=== PATIENT | male | born 1985 | race Caucasian/White ===

== ENCOUNTER 2022-05-18 13:18 | Inpatient (IN) | payer OTHER ==
[2022-05-18 14:31] LABS: #Eosinphils 0.1 thou/uL (0.0-0.7); #Lymphocytes 2.1 thou/uL (1.20-3.40); #Monocytes 0.5 thou/uL (0.11-0.59); #Neutrophils 7.2 thou/uL (1.40-6.50); %Basophils 0.2 % (0.0-1.0); %Eosinophils 0.7 % (0.0-10.0); %Lymphocytes 21.6 % (21.0-51.0); %Neutrophils 72.5 % (42.0-75.0); Hemoglobin 6.3 g/dL (14.0-18.0); Mean Corpuscular HGB CONC 32.2 g/dL (32.0-36.0); Mean Corpuscular Hemoglobin 42.8 pg (27.0-31.0); Mean Platelet Volume 9.4 fL (7.4-10.4); Platelet Count 153 thou/uL (130-400); RBC Distribution Width 18.2 % (11.5-14.5); Red Blood Cell (RBC) Count 1.46 mill/uL (4.70-6.10); White Blood Cell (WBC) Count 9.9 thou/uL (4.8-10.8)
[2022-05-18 14:37] LABS: INR-International Normal Ratio 1.3; Prothrombin Time 16.8 sec (12.0-14.7)
[2022-05-18 14:38] LABS: PTT 37.5 sec (22.9-36.1)
[2022-05-18 14:43] LABS: ALT (SGPT) 90 U/L (8-55); AST (SGOT) 245 U/L (5-34); Acetaminophen Less than 10.0 mcg/mL (10.0-30.0); Albumin 2.9 g/dL (3.5-5.0); Alcohol Less than 10 mg/dL (Less than 10); Alkaline Phosphatase 227 U/L (40-110); Anion Gap 18 mmol/L (10-20); BUN (Urea Nitrogen) 31 mg/dL (8.9-20.6); Bilirubin, Total 17.4 mg/dL (0.2-1.2); Calc. Creatinine Clearance 0 mL/min (70-130); Calcium 8.1 mg/dL (7.8-10.44); Carbon Dioxide 27 mmol/L (22-29); Chloride 78 mmol/L (98-107); Estimated GFR 63; Globulin 2.7 g/dL (2.4-3.5); Glucose 126 mg/dL (70-105); Lipase 139 U/L (8-78); Potassium 4.1 mmol/L (3.5-5.1); Protein, Total 5.6 g/dL (6.0-8.3); Salicylate Less than 8.0 mg/dL (15.0-30.0)
[2022-05-18 14:56] LABS: Anisocytosis SLIGHT = 6-15 cells (100X) (0-5/hpf); Basophilic Stippling SLIGHT = 1-2 cells (100X) (None Seen); MDiff Complete? YES; Macrocytosis MODERATE=16-30 cells (100X) (0-5/hpf); Platelet Morphology Comment Appears Adequate; Poikilocytosis SLIGHT = 6-15 cells (100X) (0-5/hpf); Polychromasia MODERATE = 3-4 cells (100X) (0-2/hpf); Schistocytes SLIGHT = 2-5 cells (100X) (0-1/hpf); Target Cells SLIGHT = 2-5 cells (100X) (0-1/hpf); Tear Drops SLIGHT = 2-5 cells (100X) (0-1/hpf)
[2022-05-18 15:04] LABS: Sodium 119 mmol/L (136-145)
[2022-05-18] MEDS ORDERED: Pantoprazole 40 MG VIAL ONE ×2 (15:23→17:59)
[2022-05-18] MEDS ORDERED: Activated Charcoal/Sorbitol 25 GM/120 ML TUBE ONE (15:38)
[2022-05-18] MEDS ORDERED: Lorazepam 2 MG/ML VIAL ONE (15:38)
[2022-05-18] MEDS ORDERED: Ondansetron ODT 4 MG TAB PO PRN (16:26)
[2022-05-18] MEDS ORDERED: Senokot S 8.6-50 MG TAB PO PRN (16:26)
[2022-05-18] MEDS ORDERED: Ondansetron PF 4 MG/2 ML Vial IVP PRN (16:26)
[2022-05-18] MEDS ORDERED: Pantoprazole 80 MG, Admixture Fee 1 EACH in Sodium Chloride 0.9% 100 ML IVPB SCH (16:45)
[2022-05-18] MEDS ORDERED: Folic Acid 1 MG TAB PO SCH (17:00)
[2022-05-18 17:40] LABS: SARS-CoV-2 NAA Rapid Test Not Detected (NotDetected)
[2022-05-18] MEDS ORDERED: Pantoprazole 40 MG VIAL IVP SCH ×3 (17:45→18:00)
[2022-05-18] MEDS ORDERED: cefTRIAXone\\ROCEPHIN 1 GM VIAL ONE (17:58)
[2022-05-18] MEDS ORDERED: methylPREDNISolone Sod Succ 40 MG VIAL ONE (17:59)
[2022-05-18] MEDS ORDERED: Octreotide Acetate 50 MCG/ML AMP SLOW IVP SCH (18:00)
[2022-05-18] MEDS ORDERED: Lorazepam 2 MG/ML VIAL SLOW IVP PRN (18:01)
[2022-05-18] MEDS ORDERED: Lorazepam 2 MG/ML VIAL IM PRN (18:03)
[2022-05-18] MEDS ORDERED: Lorazepam 1 MG TAB PO PRN (18:03)
[2022-05-18] MEDS ORDERED: Multivit, Therapeutic 1 TAB PO SCH (18:15)
[2022-05-18] MEDS: Sodium Chloride 0.9% 1,000 ML IV SCH (18:20)
[2022-05-18] MEDS: cefTRIAXone\\ROCEPHIN 1 GM in Sodium Chloride 0.9% 100 ML IVPB SCH (18:20)
[2022-05-18] MEDS: methylPREDNISolone Sod Succ/PF 125 MG/2 ML VIAL IVP SCH (18:21)
[2022-05-18 19:24] LABS: INR-International Normal Ratio 1.3; PTT 37.4 sec (22.9-36.1); Prothrombin Time 16.4 sec (12.0-14.7)
[2022-05-18 19:47] LABS: Bilirubin 2+ (Negative); Blood, Urine Negative (Negative); Clarity Turbid (Clear); Glucose, Urine (Dipstick) Normal (Negative); Ketone, Urine Negative (Negative); Leukocyte Negative Leu/uL (Negative); Nitrite Negative (Negative); Protein, Urine (Dipstick) 10 mg/dL (Neg-Trace); Specific Gravity, Urine 1.017 (1.002-1.036)
[2022-05-18 19:58] LABS: Amphetamine Not Detected (NotDetected); Barbiturates Screen Not Detected (NotDetected); Benzodiazepine Screen Not Detected (NotDetected); Cocaine Metabolite Screen Not Detected (NotDetected); Methadone Not Detected (NotDetected); Methamphetamine Not Detected (NotDetected); Opiate Screen Not Detected (NotDetected); Oxycodone Screen Not Detected (NotDetected); Phencyclidine (PCP) Not Detected (NotDetected); THC/Cannabinoid Screen Not Detected (NotDetected); Tricyclic Screen Not Detected (NotDetected)
[2022-05-18] MEDS: Lorazepam 1 MG TAB PO SCH (21:00)
[2022-05-18] MEDS: Octreotide Acetate 1,250 MCG in Sodium Chloride 0.9% 250 ML 250 ML IVPB SCH (21:57)
[2022-05-18 22:49] LABS: Anion Gap 17 mmol/L (10-20); BUN (Urea Nitrogen) 34 mg/dL (8.9-20.6); Calc. Creatinine Clearance 76 mL/min (70-130); Carbon Dioxide 27 mmol/L (22-29); Chloride 80 mmol/L (98-107); Estimated GFR 65; Glucose 124 mg/dL (70-105); Potassium 4.5 mmol/L (3.5-5.1)
[2022-05-18 22:54] LABS: Sodium 119 mmol/L (136-145)
[2022-05-19] MEDS: Lorazepam 1 MG TAB PO SCH ×4 (00:08→18:11)
[2022-05-19] MEDS: Sodium Chloride 0.9% 1,000 ML IV SCH (02:13)
[2022-05-19 02:49] LABS: INR-International Normal Ratio 1.3; Prothrombin Time 16.3 sec (12.0-14.7)
[2022-05-19 02:50] LABS: PTT 38.1 sec (22.9-36.1)
[2022-05-19 03:12] LABS: Magnesium 2.2 mg/dL (1.6-2.6)
[2022-05-19 03:13] LABS: CK (CPK) 18 U/L (30-200); Lipase 116 U/L (8-78); Phosphorus 2.6 mg/dL (2.3-4.7)
[2022-05-19 03:14] LABS: ALT (SGPT) 86 U/L (8-55); AST (SGOT) 211 U/L (5-34); Albumin 2.8 g/dL (3.5-5.0); Alkaline Phosphatase 222 U/L (40-110); Anion Gap 20 mmol/L (10-20); BUN (Urea Nitrogen) 34 mg/dL (8.9-20.6); Calc. Creatinine Clearance 71 mL/min (70-130); Calcium 8.1 mg/dL (7.8-10.44); Carbon Dioxide 24 mmol/L (22-29); Chloride 79 mmol/L (98-107); Estimated GFR 60; Globulin 3.1 g/dL (2.4-3.5); Glucose 166 mg/dL (70-105); Potassium 4.7 mmol/L (3.5-5.1); Protein, Total 5.9 g/dL (6.0-8.3)
[2022-05-19 03:16] LABS: Sodium 118 mmol/L (136-145)
[2022-05-19 03:29] LABS: Anisocytosis MODERATE=16-30 cells (100X) (0-5/hpf); Band 5 % (5-11); Hemoglobin 8.1 g/dL (14.0-18.0); Lymphocytes 6 % (21-51); MDiff Complete? YES; Macrocytosis MODERATE=16-30 cells (100X) (0-5/hpf); Mean Corpuscular HGB CONC 33.6 g/dL (32.0-36.0); Mean Corpuscular Hemoglobin 39.5 pg (27.0-31.0); Mean Platelet Volume 9.4 fL (7.4-10.4); Monocytes 3 % (0-10); Neutrophil 86 % (42-75); Nucleated RBC 2 % (0); Platelet Count 132 thou/uL (130-400); Polychromasia MODERATE = 3-4 cells (100X) (0-2/hpf); RBC Distribution Width 24.1 % (11.5-14.5); Red Blood Cell (RBC) Count 2.05 mill/uL (4.70-6.10); Target Cells SLIGHT = 2-5 cells (100X) (0-1/hpf); White Blood Cell (WBC) Count 6.7 thou/uL (4.8-10.8)
[2022-05-19 03:38] LABS: Vitamin B12 440 pg/mL (211-911)
[2022-05-19 03:44] LABS: HBCM Index 0.09 S/CO (0-0.79); HBSAg Index 0.38 S/CO (0-0.99); Hep A IgM AB Non-Reactive (NonReactive); Hep A IgM S/CO 0.22 S/CO (0-0.79); Hep B Surf Ag Non-Reactive S/CO (NonReactive); Hep C IgG Ab Non-Reactive (NonReactive); Hep C Index 0.14 S/CO (0-0.79); Hepatitis B Core IgM Abs Non-Reactive (NonReactive)
[2022-05-19] MEDS: Albumin 25% 25 GM/100 ML BOT IVPB SCH ×4 (04:55→22:02)
[2022-05-19] MEDS: Pantoprazole 80 MG in Sodium Chloride 0.9% 100 ML IVPB SCH ×2 (05:03→15:14)
[2022-05-19 07:39] LABS: Anion Gap 19 mmol/L (10-20); BUN (Urea Nitrogen) 38 mg/dL (8.9-20.6); Calc. Creatinine Clearance 70 mL/min (70-130); Calcium 7.9 mg/dL (7.8-10.44); Carbon Dioxide 24 mmol/L (22-29); Chloride 81 mmol/L (98-107); Estimated GFR 59; Glucose 177 mg/dL (70-105); Potassium 4.5 mmol/L (3.5-5.1)
[2022-05-19 07:43] LABS: Sodium 119 mmol/L (136-145)
[2022-05-19] MEDS: Thiamine 100 MG TAB PO SCH (09:06)
[2022-05-19] MEDS: Multivit, Therapeutic 1 TAB PO SCH (09:06)
[2022-05-19] MEDS: prednisoLONE 15 MG/5 ML UDCUP PO SCH (09:07)
[2022-05-19] MEDS: Folic Acid 1 MG TAB PO SCH (09:07)
[2022-05-19] MEDS: Midodrine HCl 5 MG TAB PO SCH ×3 (09:07→20:38)
[2022-05-19 11:13] LABS: Syphilis Antibody Nonreactive (Nonreactive); Syphilis Antibody Index 0.07 S/CO (<1.00 Non-Reactive)
[2022-05-19 12:00] LABS: Anion Gap 16 mmol/L (10-20); BUN (Urea Nitrogen) 42 mg/dL (8.9-20.6); Calc. Creatinine Clearance 66 mL/min (70-130); Calcium 8.1 mg/dL (7.8-10.44); Carbon Dioxide 26 mmol/L (22-29); Chloride 81 mmol/L (98-107); Estimated GFR 55; Glucose 190 mg/dL (70-105); Potassium 4.3 mmol/L (3.5-5.1)
[2022-05-19 12:16] LABS: Sodium 119 mmol/L (136-145)
[2022-05-19 16:51] LABS: Anion Gap 17 mmol/L (10-20); BUN (Urea Nitrogen) 45 mg/dL (8.9-20.6); Calc. Creatinine Clearance 70 mL/min (70-130); Calcium 8.3 mg/dL (7.8-10.44); Carbon Dioxide 25 mmol/L (22-29); Chloride 82 mmol/L (98-107); Estimated GFR 59; Glucose 209 mg/dL (70-105); Sodium 120 mmol/L (136-145)
[2022-05-19] MEDS ORDERED: Lorazepam 1 MG TAB PO PRN (18:03)
[2022-05-19] MEDS: methylPREDNISolone Sod Succ/PF 125 MG/2 ML VIAL IVP SCH (18:11)
[2022-05-19] MEDS: cefTRIAXone\\ROCEPHIN 1 GM in Sodium Chloride 0.9% 100 ML IVPB SCH (19:09)
[2022-05-19] MEDS: Octreotide Acetate 1,250 MCG in Sodium Chloride 0.9% 250 ML 250 ML IVPB SCH (22:07)
[2022-05-20] MEDS: Lorazepam 1 MG TAB PO SCH ×3 (01:00→12:28)
[2022-05-20] MEDS: Pantoprazole 80 MG in Sodium Chloride 0.9% 100 ML IVPB SCH ×3 (01:21→19:59)
[2022-05-20 02:14] LABS: Hep B Surface AG-Rflx Sendout Negative (Negative); Hepatitis B Core Total Negative (Negative); Hepatitis B Surface AB-Sendout Non Reactive (.)
[2022-05-20] MEDS: Albumin 25% 25 GM/100 ML BOT IVPB SCH (04:15)
[2022-05-20 04:50] LABS: INR-International Normal Ratio 1.3; PTT 30.4 sec (22.9-36.1); Prothrombin Time 16.5 sec (12.0-14.7)
[2022-05-20 05:08] LABS: ALT (SGPT) 70 U/L (8-55); AST (SGOT) 163 U/L (5-34); Albumin 3.7 g/dL (3.5-5.0); Alkaline Phosphatase 169 U/L (40-110); Anion Gap 17 mmol/L (10-20); BUN (Urea Nitrogen) 45 mg/dL (8.9-20.6); Bilirubin, Total 20.9 mg/dL (0.2-1.2); Calc. Creatinine Clearance 69 mL/min (70-130); Calcium 8.4 mg/dL (7.8-10.44); Carbon Dioxide 26 mmol/L (22-29); Chloride 84 mmol/L (98-107); Estimated GFR 58; Globulin 2.6 g/dL (2.4-3.5); Glucose 199 mg/dL (70-105); Potassium 4.3 mmol/L (3.5-5.1); Protein, Total 6.3 g/dL (6.0-8.3); Sodium 123 mmol/L (136-145)
[2022-05-20 05:11] LABS: Anisocytosis MODERATE=16-30 cells (100X) (0-5/hpf); Band 5 % (5-11); Hemoglobin 7.9 g/dL (14.0-18.0); Lymphocytes 6 % (21-51); MDiff Complete? YES; Macrocytosis MODERATE=16-30 cells (100X) (0-5/hpf); Mean Corpuscular HGB CONC 35.7 g/dL (32.0-36.0); Mean Corpuscular Hemoglobin 42.5 pg (27.0-31.0); Mean Platelet Volume 9.7 fL (7.4-10.4); Monocytes 5 % (0-10); Neutrophil 84 % (42-75); Nucleated RBC 4 % (0); Ovalocytes MODERATE= 6-15 cells (100X) (0-1/hpf); Platelet Count 125 thou/uL (130-400); Platelet Morphology Comment Appears Decreased; RBC Distribution Width 23.1 % (11.5-14.5); Red Blood Cell (RBC) Count 1.85 mill/uL (4.70-6.10); Target Cells MODERATE= 6-15 cells (100X) (0-1/hpf); Tear Drops SLIGHT = 2-5 cells (100X) (0-1/hpf); White Blood Cell (WBC) Count 6.2 thou/uL (4.8-10.8)
[2022-05-20] MEDS ORDERED: Famotidine/PF 20 mg/2ml Vial ONE (07:55)
[2022-05-20] MEDS ORDERED: Ondansetron HCl/PF 4 MG/2 ML Vial IVP PRN (08:01)
[2022-05-20] MEDS ORDERED: Promethazine HCl 25 MG/ML VIAL IVPB PRN (08:01)
[2022-05-20] MEDS ORDERED: Promethazine HCl 25 MG/ML VIAL IM PRN (08:01)
[2022-05-20] MEDS ORDERED: Lidocaine 1% MPF 2 ML VIAL ONE (08:13)
[2022-05-20] MEDS ORDERED: PROPOFOL 200 MG/20 ML VIAL ONE (08:13)
[2022-05-20] MEDS ORDERED: Furosemide 40 MG/4 ML VIAL SLOW IVP SCH (09:45)
[2022-05-20] MEDS: Folic Acid 1 MG TAB PO SCH (10:38)
[2022-05-20] MEDS: Multivit, Therapeutic 1 TAB PO SCH (10:38)
[2022-05-20] MEDS: Midodrine HCl 5 MG TAB PO SCH ×3 (10:38→20:52)
[2022-05-20] MEDS: Thiamine 100 MG TAB PO SCH (10:38)
[2022-05-20] MEDS: Voriconazole 50 MG TAB PO SCH ×2 (10:39→20:52)
[2022-05-20] MEDS ORDERED: Insulin Regular 300 UNITS/3 ML VIAL SC PRN (10:41)
[2022-05-20] MEDS: prednisoLONE 15 MG/5 ML UDCUP PO SCH (11:15)
[2022-05-20] MEDS ORDERED: predniSONE 20 MG TAB PO SCH (11:30)
[2022-05-20] MEDS: Cefepime 1 GM in Sodium Chloride 0.9% 100 ML IVPB SCH (12:28)
[2022-05-20] MEDS: metroNIDAZOLE 500 MG in Premix Bag 1 BAG IVPB SCH ×2 (12:29→20:02)
[2022-05-20] MEDS: Vancomycin 1.5 GRAM/300 ML BAG 1.5 GM in Premix Bag 1 BAG IVPB SCH (13:53)
[2022-05-20] MEDS ORDERED: Octreotide Acetate 100 MCG/ML VIAL SC SCH (14:00)
[2022-05-20] MEDS: Nicotine 21 MG PATCH TD SCH (17:11)
[2022-05-20] MEDS ORDERED: Lorazepam 1 MG TAB PO PRN (18:03)
[2022-05-20] MEDS: guaiFENesin/DM ER PO SCH (20:52)
[2022-05-20] MEDS: Furosemide 40 MG/4 ML VIAL SLOW IVP SCH (20:52)
[2022-05-20] MEDS: Octreotide Acetate 500 MCG/ML VIAL SC SCH (22:26)
[2022-05-21] MEDS: Cefepime 1 GM in Sodium Chloride 0.9% 100 ML IVPB SCH ×2 (00:16→12:48)
[2022-05-21] MEDS ORDERED: Morphine 2 MG/ML VIAL SLOW IVP SCH (00:45)
[2022-05-21] MEDS: metroNIDAZOLE 500 MG in Premix Bag 1 BAG IVPB SCH ×3 (03:02→21:29)
[2022-05-21 03:49] LABS: Hemoglobin 7.2 g/dL (14.0-18.0); Mean Corpuscular HGB CONC 33.6 g/dL (32.0-36.0); Mean Corpuscular Hemoglobin 40.1 pg (27.0-31.0); Mean Platelet Volume 9.3 fL (7.4-10.4); Platelet Count 111 thou/uL (130-400); RBC Distribution Width 22.7 % (11.5-14.5); Red Blood Cell (RBC) Count 1.79 mill/uL (4.70-6.10); White Blood Cell (WBC) Count 6.4 thou/uL (4.8-10.8)
[2022-05-21 04:14] LABS: ALT (SGPT) 75 U/L (8-55); AST (SGOT) 142 U/L (5-34); Albumin 3.6 g/dL (3.5-5.0); Alkaline Phosphatase 144 U/L (40-110); Anion Gap 19 mmol/L (10-20); BUN (Urea Nitrogen) 48 mg/dL (8.9-20.6); Bilirubin, Total 21.3 mg/dL (0.2-1.2); Calc. Creatinine Clearance 85 mL/min (70-130); Calcium 8.5 mg/dL (7.8-10.44); Carbon Dioxide 24 mmol/L (22-29); Chloride 88 mmol/L (98-107); Estimated GFR 73; Globulin 2.3 g/dL (2.4-3.5); Glucose 201 mg/dL (70-105); Potassium 3.2 mmol/L (3.5-5.1); Protein, Total 5.9 g/dL (6.0-8.3); Sodium 128 mmol/L (136-145)
[2022-05-21] MEDS: Pantoprazole 80 MG in Sodium Chloride 0.9% 100 ML IVPB SCH (06:05)
[2022-05-21] MEDS: Octreotide Acetate 500 MCG/ML VIAL SC SCH (06:06)
[2022-05-21] MEDS ORDERED: Electrolyte Replacement Protocol 1 EACH FS SCH (07:45)
[2022-05-21] MEDS ORDERED: Electrolyte Replacement Protocol FS PRN (08:00)
[2022-05-21] MEDS ORDERED: Potassium Chloride 20 MEQ TAB PO SCH (08:00)
[2022-05-21] MEDS: predniSONE 20 MG TAB PO SCH (08:23)
[2022-05-21] MEDS: Folic Acid 1 MG TAB PO SCH (08:23)
[2022-05-21] MEDS: Spironolactone 25 MG TAB PO SCH (08:23)
[2022-05-21] MEDS: Midodrine HCl 5 MG TAB PO SCH ×2 (08:23→16:37)
[2022-05-21] MEDS: Voriconazole 50 MG TAB PO SCH ×2 (08:23→21:29)
[2022-05-21] MEDS: Pantoprazole 40 MG VIAL IVP SCH ×2 (08:24→21:30)
[2022-05-21] MEDS: Thiamine 100 MG TAB PO SCH (08:24)
[2022-05-21] MEDS: Multivit, Therapeutic 1 TAB PO SCH (08:24)
[2022-05-21] MEDS: guaiFENesin/DM ER PO SCH ×2 (08:24→21:29)
[2022-05-21] MEDS: Furosemide 40 MG/4 ML VIAL SLOW IVP SCH ×2 (08:24→21:30)
[2022-05-21] MEDS: Vancomycin 1.5 GRAM/300 ML BAG 1.5 GM in Premix Bag 1 BAG IVPB SCH (14:45)
[2022-05-21] MEDS: Nicotine 21 MG PATCH TD SCH (16:37)
[2022-05-21 18:57] LABS: Potassium 3.8 mmol/L (3.5-5.1)
[2022-05-21] MEDS ORDERED: Midodrine HCl 5 MG TAB PO SCH (21:00)
[2022-05-21] MEDS: Benzonatate 100 MG CAP PO PRN (21:29)
[2022-05-21] MEDS: Lorazepam 0.5 MG TAB PO PRN (21:29)
[2022-05-22] MEDS: Cefepime 1 GM in Sodium Chloride 0.9% 100 ML IVPB SCH ×2 (02:46→10:52)
[2022-05-22] MEDS: metroNIDAZOLE 500 MG in Premix Bag 1 BAG IVPB SCH ×3 (04:02→20:52)
[2022-05-22 04:10] LABS: Anion Gap 19 mmol/L (10-20); BUN (Urea Nitrogen) 45 mg/dL (8.9-20.6); Calc. Creatinine Clearance 84 mL/min (70-130); Calcium 8.9 mg/dL (7.8-10.44); Carbon Dioxide 26 mmol/L (22-29); Chloride 90 mmol/L (98-107); Estimated GFR 75; Glucose 181 mg/dL (70-105); Phosphorus 2.3 mg/dL (2.3-4.7); Potassium 3.5 mmol/L (3.5-5.1); Sodium 131 mmol/L (136-145)
[2022-05-22 04:41] LABS: Anisocytosis MODERATE=16-30 cells (100X) (0-5/hpf); Differential Comment Immature Cell(s); Hemoglobin 7.2 g/dL (14.0-18.0); Large Platelets SLIGHT; Lymphocytes 13 % (21-51); MDiff Complete? YES; Macrocytosis MODERATE=16-30 cells (100X) (0-5/hpf); Mean Corpuscular HGB CONC 32.5 g/dL (32.0-36.0); Mean Corpuscular Hemoglobin 38.9 pg (27.0-31.0); Mean Platelet Volume 9.3 fL (7.4-10.4); Monocytes 14 % (0-10); Neutrophil 71 % (42-75); Ovalocytes MODERATE= 6-15 cells (100X) (0-1/hpf); Platelet Count 121 thou/uL (130-400); Platelet Morphology Comment Appears Decreased; RBC Distribution Width 22.5 % (11.5-14.5); Reactive Lymphocytes 1 % (0-10); Red Blood Cell (RBC) Count 1.86 mill/uL (4.70-6.10); Reflex for Review?? NO; Target Cells SLIGHT = 2-5 cells (100X) (0-1/hpf); White Blood Cell (WBC) Count 7.1 thou/uL (4.8-10.8)
[2022-05-22] MEDS ORDERED: Magnesium 2 GM/50 ML(in water) 2 GM in Premix Bag 1 BAG IVPB SCH (08:00)
[2022-05-22] MEDS ORDERED: Potassium Chloride 20 MEQ TAB PO SCH (08:00)
[2022-05-22] MEDS: guaiFENesin/DM ER PO SCH (09:26)
[2022-05-22] MEDS: Multivit, Therapeutic 1 TAB PO SCH (09:26)
[2022-05-22] MEDS: Benzonatate 100 MG CAP PO PRN ×3 (09:26→20:53)
[2022-05-22] MEDS: predniSONE 20 MG TAB PO SCH (09:27)
[2022-05-22] MEDS: Folic Acid 1 MG TAB PO SCH (09:27)
[2022-05-22] MEDS: Thiamine 100 MG TAB PO SCH (09:27)
[2022-05-22] MEDS: Spironolactone 25 MG TAB PO SCH (09:27)
[2022-05-22] MEDS: Pantoprazole 40 MG VIAL IVP SCH ×2 (09:30→20:52)
[2022-05-22] MEDS: Furosemide 40 MG/4 ML VIAL SLOW IVP SCH ×2 (09:30→20:52)
[2022-05-22] MEDS: Voriconazole 50 MG TAB PO SCH ×2 (10:49→20:52)
[2022-05-22 12:28] LABS: Vancomycin, Trough 15.4 ug/mL
[2022-05-22] MEDS ORDERED: guaiFENesin/Codeine 200 mg/20 mg 10 ml Cup PO PRN (13:17)
[2022-05-22] MEDS: Vancomycin 1.5 GRAM/300 ML BAG 1.5 GM in Premix Bag 1 BAG IVPB SCH (14:41)
[2022-05-22] MEDS: Nicotine 21 MG PATCH TD SCH (18:34)
[2022-05-22] MEDS: Lorazepam 0.5 MG TAB PO PRN (20:53)
[2022-05-23] MEDS: Cefepime 1 GM in Sodium Chloride 0.9% 100 ML IVPB SCH ×2 (01:45→11:30)
[2022-05-23] MEDS: Lorazepam 0.5 MG TAB PO PRN (02:32)
[2022-05-23 04:15] LABS: ALT (SGPT) 91 U/L (8-55); AST (SGOT) 120 U/L (5-34); Albumin 3.4 g/dL (3.5-5.0); Alkaline Phosphatase 138 U/L (40-110); Anion Gap 14 mmol/L (10-20); BUN (Urea Nitrogen) 41 mg/dL (8.9-20.6); Bilirubin, Total 17.9 mg/dL (0.2-1.2); Calc. Creatinine Clearance 91 mL/min (70-130); Calcium 8.4 mg/dL (7.8-10.44); Carbon Dioxide 30 mmol/L (22-29); Chloride 88 mmol/L (98-107); Estimated GFR 81; Globulin 2.3 g/dL (2.4-3.5); Glucose 150 mg/dL (70-105); Potassium 3.9 mmol/L (3.5-5.1); Protein, Total 5.7 g/dL (6.0-8.3); Sodium 128 mmol/L (136-145)
[2022-05-23] MEDS: metroNIDAZOLE 500 MG in Premix Bag 1 BAG IVPB SCH ×3 (04:16→20:19)
[2022-05-23] MEDS ORDERED: methylPREDNISolone Sod Succ/PF 125 MG/2 ML VIAL IVP SCH (09:00)
[2022-05-23] MEDS ORDERED: prednisoLONE 10 MG ODT TAB PO SCH (09:00)
[2022-05-23] MEDS: Furosemide 40 MG/4 ML VIAL SLOW IVP SCH ×2 (10:42→20:20)
[2022-05-23] MEDS: Spironolactone 25 MG TAB PO SCH (10:42)
[2022-05-23] MEDS: Folic Acid 1 MG TAB PO SCH (10:42)
[2022-05-23] MEDS: Multivit, Therapeutic 1 TAB PO SCH (10:43)
[2022-05-23] MEDS: Voriconazole 50 MG TAB PO SCH ×2 (10:44→20:19)
[2022-05-23] MEDS: Pantoprazole 40 MG VIAL IVP SCH ×2 (10:44→20:19)
[2022-05-23] MEDS: Thiamine 100 MG TAB PO SCH (10:44)
[2022-05-23] MEDS: methylPREDNISolone Sod Succ/PF 125 MG/2 ML VIAL IVP SCH (11:30)
[2022-05-23] MEDS ORDERED: Cefepime 2 GM in Sodium Chloride 0.9% 100 ML IVPB SCH (12:00)
[2022-05-23] MEDS: Vancomycin 1.5 GRAM/300 ML BAG 1.5 GM in Premix Bag 1 BAG IVPB SCH (16:01)
[2022-05-23] MEDS: Nicotine 21 MG PATCH TD SCH (17:55)
[2022-05-23] MEDS: Benzonatate 100 MG CAP PO PRN (20:20)
[2022-05-24] MEDS: Cefepime 2 GM in Sodium Chloride 0.9% 100 ML IVPB SCH ×2 (02:06→13:11)
[2022-05-24 04:17] LABS: ALT (SGPT) 101 U/L (8-55); AST (SGOT) 131 U/L (5-34); Albumin 3.4 g/dL (3.5-5.0); Alkaline Phosphatase 192 U/L (40-110); Anion Gap 17 mmol/L (10-20); BUN (Urea Nitrogen) 40 mg/dL (8.9-20.6); Bilirubin, Total 19.4 mg/dL (0.2-1.2); Calc. Creatinine Clearance 98 mL/min (70-130); Calcium 9.1 mg/dL (7.8-10.44); Carbon Dioxide 29 mmol/L (22-29); Chloride 90 mmol/L (98-107); Estimated GFR 89; Globulin 2.5 g/dL (2.4-3.5); Glucose 170 mg/dL (70-105); Potassium 4.2 mmol/L (3.5-5.1); Protein, Total 5.9 g/dL (6.0-8.3); Sodium 132 mmol/L (136-145)
[2022-05-24 04:51] LABS: Band 3 % (5-11); Basophilic Stippling SLIGHT = 1-2 cells (100X) (None Seen); Hemoglobin 7.4 g/dL (14.0-18.0); Lymphocytes 4 % (21-51); MDiff Complete? YES; Mean Corpuscular HGB CONC 31.5 g/dL (32.0-36.0); Mean Platelet Volume 8.9 fL (7.4-10.4); Monocytes 8 % (0-10); Myelocyte 3 % (0-0); Neutrophil 82 % (42-75); Nucleated RBC 3 % (0); Platelet Count 257 thou/uL (130-400); RBC Distribution Width 21.1 % (11.5-14.5); Red Blood Cell (RBC) Count 1.94 mill/uL (4.70-6.10); Target Cells SLIGHT = 2-5 cells (100X) (0-1/hpf); White Blood Cell (WBC) Count 9.2 thou/uL (4.8-10.8)
[2022-05-24] MEDS: metroNIDAZOLE 500 MG in Premix Bag 1 BAG IVPB SCH ×2 (05:06→13:11)
[2022-05-24] MEDS: Thiamine 100 MG TAB PO SCH (08:58)
[2022-05-24] MEDS: Furosemide 40 MG/4 ML VIAL SLOW IVP SCH ×2 (08:58→20:39)
[2022-05-24] MEDS: Voriconazole 50 MG TAB PO SCH ×2 (08:58→20:39)
[2022-05-24] MEDS: Multivit, Therapeutic 1 TAB PO SCH (08:58)
[2022-05-24] MEDS: Folic Acid 1 MG TAB PO SCH (08:58)
[2022-05-24] MEDS: Pantoprazole 40 MG VIAL IVP SCH (08:58)
[2022-05-24] MEDS: Spironolactone 25 MG TAB PO SCH (08:59)
[2022-05-24] MEDS: methylPREDNISolone Sod Succ/PF 125 MG/2 ML VIAL IVP SCH (09:01)
[2022-05-24 13:03] LABS: Vancomycin, Trough 15.9 ug/mL
[2022-05-24] MEDS: Vancomycin 1.5 GRAM/300 ML BAG 1.5 GM in Premix Bag 1 BAG IVPB SCH (13:14)
[2022-05-24] MEDS: Cefuroxime Axetil 250 MG TAB PO SCH (18:00)
[2022-05-24] MEDS: Nicotine 21 MG PATCH TD SCH (18:00)
[2022-05-25 04:17] LABS: ALT (SGPT) 104 U/L (8-55); AST (SGOT) 116 U/L (5-34); Albumin 3.4 g/dL (3.5-5.0); Alkaline Phosphatase 276 U/L (40-110); Anion Gap 15 mmol/L (10-20); BUN (Urea Nitrogen) 43 mg/dL (8.9-20.6); Bilirubin, Total 18.1 mg/dL (0.2-1.2); Calc. Creatinine Clearance 86 mL/min (70-130); Carbon Dioxide 31 mmol/L (22-29); Chloride 91 mmol/L (98-107); Estimated GFR 76; Globulin 2.4 g/dL (2.4-3.5); Glucose 182 mg/dL (70-105); Magnesium 2.1 mg/dL (1.6-2.6); Phosphorus 2.8 mg/dL (2.3-4.7); Potassium 3.9 mmol/L (3.5-5.1); Protein, Total 5.8 g/dL (6.0-8.3); Sodium 133 mmol/L (136-145)
[2022-05-25 04:36] LABS: Anisocytosis SLIGHT = 6-15 cells (100X) (0-5/hpf); Band 1 % (5-11); Hemoglobin 7.6 g/dL (14.0-18.0); Large Platelets SLIGHT; Lymphocytes 10 % (21-51); MDiff Complete? YES; Macrocytosis MODERATE=16-30 cells (100X) (0-5/hpf); Mean Corpuscular HGB CONC 33.3 g/dL (32.0-36.0); Mean Platelet Volume 8.5 fL (7.4-10.4); Metamyelocyte 1 % (0-0); Monocytes 10 % (0-10); Neutrophil 78 % (42-75); Ovalocytes SLIGHT = 2-5 cells (100X) (0-1/hpf); Platelet Count 415 thou/uL (130-400); Platelet Morphology Comment Appears Increased; RBC Distribution Width 20.5 % (11.5-14.5); Red Blood Cell (RBC) Count 1.89 mill/uL (4.70-6.10); Target Cells MODERATE= 6-15 cells (100X) (0-1/hpf); White Blood Cell (WBC) Count 14.4 thou/uL (4.8-10.8)
[2022-05-25] MEDS: methylPREDNISolone Sod Succ/PF 125 MG/2 ML VIAL IVP SCH (08:38)
[2022-05-25] MEDS: Multivit, Therapeutic 1 TAB PO SCH (08:38)
[2022-05-25] MEDS: Furosemide 40 MG/4 ML VIAL SLOW IVP SCH ×2 (08:38→21:47)
[2022-05-25] MEDS: Thiamine 100 MG TAB PO SCH (08:38)
[2022-05-25] MEDS: Spironolactone 25 MG TAB PO SCH (08:38)
[2022-05-25] MEDS: Folic Acid 1 MG TAB PO SCH (08:38)
[2022-05-25] MEDS: Cefuroxime Axetil 250 MG TAB PO SCH ×2 (09:49→16:18)
[2022-05-25] MEDS: Voriconazole 50 MG TAB PO SCH ×2 (09:49→21:47)
[2022-05-25] MEDS: Nicotine 21 MG PATCH TD SCH (16:18)
[2022-05-26 04:01] LABS: ALT (SGPT) 100 U/L (8-55); AST (SGOT) 104 U/L (5-34); Albumin 3.2 g/dL (3.5-5.0); Alkaline Phosphatase 290 U/L (40-110); Anion Gap 14 mmol/L (10-20); BUN (Urea Nitrogen) 43 mg/dL (8.9-20.6); Bilirubin, Total 13.5 mg/dL (0.2-1.2); Calc. Creatinine Clearance 94 mL/min (70-130); Calcium 8.8 mg/dL (7.8-10.44); Carbon Dioxide 32 mmol/L (22-29); Chloride 91 mmol/L (98-107); Estimated GFR 85; Globulin 2.4 g/dL (2.4-3.5); Glucose 205 mg/dL (70-105); Magnesium 2.1 mg/dL (1.6-2.6); Phosphorus 2.6 mg/dL (2.3-4.7); Potassium 3.8 mmol/L (3.5-5.1); Protein, Total 5.6 g/dL (6.0-8.3); Sodium 133 mmol/L (136-145)
[2022-05-26 04:52] LABS: Anisocytosis MODERATE=16-30 cells (100X) (0-5/hpf); Band 1 % (5-11); Hemoglobin 7.2 g/dL (14.0-18.0); Lymphocytes 9 % (21-51); MDiff Complete? YES; Mean Corpuscular HGB CONC 32.6 g/dL (32.0-36.0); Mean Corpuscular Hemoglobin 38.5 pg (27.0-31.0); Mean Platelet Volume 8.1 fL (7.4-10.4); Monocytes 8 % (0-10); Neutrophil 82 % (42-75); Platelet Count 482 thou/uL (130-400); Platelet Morphology Comment Appears Increased; RBC Distribution Width 20.7 % (11.5-14.5); Red Blood Cell (RBC) Count 1.86 mill/uL (4.70-6.10); Stomatocytes SLIGHT = 2-5 cells (100X) (0-1/hpf); Target Cells SLIGHT = 2-5 cells (100X) (0-1/hpf); White Blood Cell (WBC) Count 15.2 thou/uL (4.8-10.8)
[2022-05-26] MEDS: Thiamine 100 MG TAB PO SCH (08:15)
[2022-05-26] MEDS: Multivit, Therapeutic 1 TAB PO SCH (08:15)
[2022-05-26] MEDS: Spironolactone 25 MG TAB PO SCH (08:15)
[2022-05-26] MEDS: Folic Acid 1 MG TAB PO SCH (08:16)
[2022-05-26] MEDS: Voriconazole 50 MG TAB PO SCH ×2 (08:16→21:24)
[2022-05-26] MEDS: Cefuroxime Axetil 250 MG TAB PO SCH ×2 (08:16→17:03)
[2022-05-26] MEDS ORDERED: predniSONE 20 MG TAB PO SCH (09:00)
[2022-05-26] MEDS: Nicotine 21 MG PATCH TD SCH (17:03)
[2022-05-27 05:19] VITALS: BMI 27.6
[2022-05-27 06:19] LABS: #Lymphocytes 0.7 thou/uL (1.20-3.40); #Monocytes 2.9 thou/uL (0.11-0.59); #Neutrophils 15.9 thou/uL (1.40-6.50); %Eosinophils 0.2 % (0.0-10.0); %Lymphocytes 3.6 % (21.0-51.0); %Monocytes 14.6 % (0.0-10.0); %Neutrophils 81.5 % (42.0-75.0); Hemoglobin 7.2 g/dL (14.0-18.0); Mean Corpuscular HGB CONC 31.6 g/dL (32.0-36.0); Mean Corpuscular Hemoglobin 37.9 pg (27.0-31.0); Mean Platelet Volume 8.3 fL (7.4-10.4); Platelet Count 538 thou/uL (130-400); RBC Distribution Width 20.4 % (11.5-14.5); White Blood Cell (WBC) Count 19.6 thou/uL (4.8-10.8)
[2022-05-27 06:40] LABS: Phosphorus 2.2 mg/dL (2.3-4.7)
[2022-05-27 06:44] LABS: ALT (SGPT) 113 U/L (8-55); AST (SGOT) 115 U/L (5-34); Albumin 3.3 g/dL (3.5-5.0); Alkaline Phosphatase 327 U/L (40-110); Anion Gap 11 mmol/L (10-20); BUN (Urea Nitrogen) 33 mg/dL (8.9-20.6); Bilirubin, Total 11.6 mg/dL (0.2-1.2); Calc. Creatinine Clearance 109 mL/min (70-130); Carbon Dioxide 35 mmol/L (22-29); Chloride 91 mmol/L (98-107); Estimated GFR 102; Globulin 2.4 g/dL (2.4-3.5); Glucose 155 mg/dL (70-105); Iron 62 ug/dL (65-175); Iron Binding Capacity, Total 220 mcg/dL (261-462); Magnesium 2.1 mg/dL (1.6-2.6); Potassium 4.3 mmol/L (3.5-5.1); Protein, Total 5.7 g/dL (6.0-8.3); Sodium 133 mmol/L (136-145)
[2022-05-27] MEDS: prednisoLONE 10 MG ODT TAB PO SCH (07:57)
[2022-05-27] MEDS: Multivit, Therapeutic 1 TAB PO SCH (07:57)
[2022-05-27] MEDS: Cefuroxime Axetil 250 MG TAB PO SCH (07:58)
[2022-05-27] MEDS: Furosemide 40 MG TAB PO SCH (07:58)
[2022-05-27] MEDS: Spironolactone 25 MG TAB PO SCH (07:58)
[2022-05-27] MEDS: Folic Acid 1 MG TAB PO SCH (07:58)
[2022-05-27] MEDS: Thiamine 100 MG TAB PO SCH (07:58)
[2022-05-27] MEDS: Voriconazole 50 MG TAB PO SCH ×2 (07:58→20:35)
[2022-05-27] MEDS: Nicotine 21 MG PATCH TD SCH (16:49)
[2022-05-27] MEDS: Ferrous Sulfate 325 MG TAB PO SCH (16:49)
[2022-05-28 07:05] LABS: Anion Gap 12 mmol/L (10-20); BUN (Urea Nitrogen) 28 mg/dL (8.9-20.6); Calc. Creatinine Clearance 99 mL/min (70-130); Calcium 8.7 mg/dL (7.8-10.44); Carbon Dioxide 34 mmol/L (22-29); Chloride 93 mmol/L (98-107); Estimated GFR 91; Glucose 158 mg/dL (70-105); Potassium 4.5 mmol/L (3.5-5.1); Sodium 134 mmol/L (136-145)
[2022-05-28 07:49] LABS: Band 3 % (5-11); Hemoglobin 7.3 g/dL (14.0-18.0); Hypochromia SLIGHT = 6-15 cells (100X) (0-5/hpf); Lymphocytes 5 % (21-51); MDiff Complete? YES; Macrocytosis MODERATE=16-30 cells (100X) (0-5/hpf); Mean Corpuscular HGB CONC 30.9 g/dL (32.0-36.0); Mean Corpuscular Hemoglobin 36.6 pg (27.0-31.0); Mean Platelet Volume 8.2 fL (7.4-10.4); Monocytes 11 % (0-10); Neutrophil 81 % (42-75); Platelet Count 560 thou/uL (130-400); Platelet Morphology Comment Appears Increased; Polychromasia SLIGHT = 2-3 cells (100X) (0-2/hpf); RBC Distribution Width 20.2 % (11.5-14.5); Red Blood Cell (RBC) Count 1.99 mill/uL (4.70-6.10); Stomatocytes SLIGHT = 2-5 cells (100X) (0-1/hpf); Target Cells MODERATE= 6-15 cells (100X) (0-1/hpf); White Blood Cell (WBC) Count 22.2 thou/uL (4.8-10.8)
[2022-05-28] MEDS: Spironolactone 25 MG TAB PO SCH (08:05)
[2022-05-28] MEDS: Ferrous Sulfate 325 MG TAB PO SCH ×2 (08:05→16:10)
[2022-05-28] MEDS: Thiamine 100 MG TAB PO SCH (08:05)
[2022-05-28] MEDS: Cefuroxime Axetil 250 MG TAB PO SCH ×2 (08:05→16:10)
[2022-05-28] MEDS: Voriconazole 50 MG TAB PO SCH ×2 (08:05→20:34)
[2022-05-28] MEDS: Furosemide 40 MG TAB PO SCH (08:05)
[2022-05-28] MEDS: Multivit, Therapeutic 1 TAB PO SCH (08:05)
[2022-05-28] MEDS: Folic Acid 1 MG TAB PO SCH (08:05)
[2022-05-28] MEDS: prednisoLONE 10 MG ODT TAB PO SCH (08:05)
[2022-05-28] MEDS ORDERED: Iopamidol-370 76% 500 ML 1 ML ONE (08:41)
[2022-05-28] MEDS ORDERED: chlordiazePOXIDE HCl 5 MG CAP PO SCH ×2 (10:15→15:00)
[2022-05-28 14:02] LABS: INR-International Normal Ratio 1.1; Prothrombin Time 14.2 sec (12.0-14.7)
[2022-05-28 14:05] LABS: ALT (SGPT) 133 U/L (8-55); AST (SGOT) 154 U/L (5-34); Albumin 3.5 g/dL (3.5-5.0); Alkaline Phosphatase 365 U/L (40-110); Bilirubin, Direct 8.1 mg/dL (0.1-0.3); Bilirubin, Total 11.6 mg/dL (0.2-1.2); Protein, Total 5.9 g/dL (6.0-8.3)
[2022-05-28] MEDS: Nicotine 21 MG PATCH TD SCH (16:10)
[2022-05-28] MEDS: chlordiazePOXIDE HCl 5 MG CAP PO SCH ×2 (16:10→20:34)
[2022-05-28 18:44] LABS: EliA Vaculitis New Method **** NEW METHOD ****; Mitochondrial Ab Less than 0.5 U/mL (<4 Negative)
[2022-05-29 06:39] LABS: ALT (SGPT) 126 U/L (8-55); AST (SGOT) 121 U/L (5-34); Albumin 3.4 g/dL (3.5-5.0); Alkaline Phosphatase 337 U/L (40-110); Anion Gap 12 mmol/L (10-20); BUN (Urea Nitrogen) 27 mg/dL (8.9-20.6); Bilirubin, Total 10.8 mg/dL (0.2-1.2); Calc. Creatinine Clearance 118 mL/min (70-130); Calcium 8.9 mg/dL (7.8-10.44); Carbon Dioxide 34 mmol/L (22-29); Chloride 95 mmol/L (98-107); Estimated GFR 89; Globulin 2.5 g/dL (2.4-3.5); Glucose 160 mg/dL (70-105); Potassium 4.5 mmol/L (3.5-5.1); Protein, Total 5.9 g/dL (6.0-8.3); Sodium 136 mmol/L (136-145)
[2022-05-29 07:33] LABS: Anisocytosis SLIGHT = 6-15 cells (100X) (0-5/hpf); Band 3 % (5-11); Basophilic Stippling SLIGHT = 1-2 cells (100X) (None Seen); Hemoglobin 7.4 g/dL (14.0-18.0); Lymphocytes 3 % (21-51); MDiff Complete? YES; Macrocytosis MODERATE=16-30 cells (100X) (0-5/hpf); Mean Corpuscular HGB CONC 31.1 g/dL (32.0-36.0); Mean Corpuscular Hemoglobin 37.1 pg (27.0-31.0); Mean Platelet Volume 8.4 fL (7.4-10.4); Monocytes 5 % (0-10); Neutrophil 89 % (42-75); Ovalocytes MODERATE= 6-15 cells (100X) (0-1/hpf); Platelet Count 528 thou/uL (130-400); Platelet Morphology Comment Appears Increased; Poikilocytosis SLIGHT = 6-15 cells (100X) (0-5/hpf); Red Blood Cell (RBC) Count 1.99 mill/uL (4.70-6.10); Target Cells MODERATE= 6-15 cells (100X) (0-1/hpf); White Blood Cell (WBC) Count 25.4 thou/uL (4.8-10.8)
[2022-05-29] MEDS: Voriconazole 50 MG TAB PO SCH ×2 (09:05→20:41)
[2022-05-29] MEDS: prednisoLONE 10 MG ODT TAB PO SCH (09:06)
[2022-05-29] MEDS: Cefuroxime Axetil 250 MG TAB PO SCH ×2 (09:06→17:29)
[2022-05-29] MEDS: Furosemide 40 MG TAB PO SCH (09:06)
[2022-05-29] MEDS: Thiamine 100 MG TAB PO SCH (09:07)
[2022-05-29] MEDS: Ferrous Sulfate 325 MG TAB PO SCH ×2 (09:07→17:29)
[2022-05-29] MEDS: Spironolactone 25 MG TAB PO SCH (09:07)
[2022-05-29] MEDS: Multivit, Therapeutic 1 TAB PO SCH (09:07)
[2022-05-29] MEDS: Folic Acid 1 MG TAB PO SCH (09:07)
[2022-05-29] MEDS: chlordiazePOXIDE HCl 5 MG CAP PO SCH ×3 (09:58→20:42)
[2022-05-29] MEDS: Nicotine 21 MG PATCH TD SCH (17:29)
[2022-05-30 06:21] LABS: Platelet Count 525 thou/uL (130-400)
[2022-05-30 06:23] LABS: INR-International Normal Ratio 1.1; Prothrombin Time 14.3 sec (12.0-14.7)
[2022-05-30] MEDS ORDERED: Sodium Bicarbonate 2.5 MEQ/5 ML VIAL ONE (08:19)
[2022-05-30] MEDS ORDERED: Lidocaine 2% PF 5 ML VIAL ONE (08:19)
[2022-05-30] MEDS: Cefuroxime Axetil 250 MG TAB PO SCH (09:39)
[2022-05-30] MEDS: Multivit, Therapeutic 1 TAB PO SCH (09:39)
[2022-05-30] MEDS: Furosemide 40 MG TAB PO SCH (09:40)
[2022-05-30] MEDS: Folic Acid 1 MG TAB PO SCH (09:40)
[2022-05-30] MEDS: prednisoLONE 10 MG ODT TAB PO SCH (09:40)
[2022-05-30] MEDS: Ferrous Sulfate 325 MG TAB PO SCH (09:40)
[2022-05-30] MEDS: Voriconazole 50 MG TAB PO SCH (09:41)
[2022-05-30] MEDS: Thiamine 100 MG TAB PO SCH (09:41)
[2022-05-30] MEDS: Spironolactone 25 MG TAB PO SCH (09:42)
[2022-05-30] MEDS: chlordiazePOXIDE HCl 5 MG CAP PO SCH (10:32)
[2022-05-30 14:00] VITALS: TEMP 98.4
[2022-05-30 15:19] VITALS: BP 104/70
[2022-05-31] MEDS ORDERED: chlordiazePOXIDE HCl 5 MG CAP PO SCH (09:00)
== END 2022-05-30 15:33 | disposition home health service (06) | DRG 432 ==
LOC: ERS 13:18 → ERHOLD 15:45 → IMCU/EMU 17:53 → T4-A 05-26 16:21
PROVIDERS: ADMIT Internal Medicine; ATTEND Hospitalist
PROC: 30233N1 Transfusion of Nonautologous Red Blood Cells into Peripheral Vein, Percutaneous Approach (ICD-10-PCS; 2022-05-18)
PROC: 30233J1 Transfusion of Nonautologous Serum Albumin into Peripheral Vein, Percutaneous Approach (ICD-10-PCS; 2022-05-19)
PROC: 0DJ08ZZ Inspection of Upper Intestinal Tract, Via Natural or Artificial Opening Endoscopic (ICD-10-PCS; principal; 2022-05-20)
DX: K70.11 Alcoholic hepatitis with ascites (principal); G93.41 Metabolic encephalopathy; J96.01 Acute respiratory failure with hypoxia; K85.90 Acute pancreatitis without necrosis or infection, unspecified; J69.0 Pneumonitis due to inhalation of food and vomit; D62 Acute posthemorrhagic anemia; E87.1 Hypo-osmolality and hyponatremia; F10.239 Alcohol dependence with withdrawal, unspecified; N17.9 Acute kidney failure, unspecified; K76.6 Portal hypertension; E46 Unspecified protein-calorie malnutrition; K72.90 Hepatic failure, unspecified without coma; F17.210 Nicotine dependence, cigarettes, uncomplicated; Z20.822 Contact with and (suspected) exposure to COVID-19; K21.9 Gastro-esophageal reflux disease without esophagitis; K70.31 Alcoholic cirrhosis of liver with ascites; N18.30 Chronic kidney disease, stage 3 unspecified; K31.89 Other diseases of stomach and duodenum; D69.6 Thrombocytopenia, unspecified; E88.09 Other disorders of plasma-protein metabolism, not elsewhere classified; K70.0 Alcoholic fatty liver; Z68.33 Body mass index [BMI] 33.0-33.9, adult; D63.1 Anemia in chronic kidney disease; K20.80 Other esophagitis without bleeding
CPT/HCPCS: 36415; 36430; 71045; 71260; 76705; 80048; 80053; 80074; 80076; 80202; 80306; 80307; 81003; 82103; 82140; 82248; 82390; 82550; 82607; 82746; 83516; 83540; 83550; 83690; 83735; 83880; 83930; 83935; 84100; 84145; 84484; 85025; 85027; 85049; 85610; 85652; 85730; 86015; 86140; 86704; 86706; 86780; 86850; 86900; 86901; 87081; 87340; 87811; 93005; 93306; 94640; 96365; 96375; 96376; C9113; J0692; J0696; J1940; J2001; J2060; J2270; J2354; J2704; J2920; J2930; J3370; J3411; J3475; J3490; J7050; J7510; J7512; J7620; P9016; P9047; Q9967; S0028; U0002

== ENCOUNTER 2022-06-01 20:18 | Inpatient (IN) | payer OTHER ==
[~2022-06-01 20:18] MED LIST: Iopamidol 370 76% 100 ML VIAL ONE
[2022-06-01 21:37] LABS: Hemoglobin 7.7 g/dL (14.0-18.0); Mean Corpuscular HGB CONC 30.9 g/dL (32.0-36.0); Mean Corpuscular Hemoglobin 35.9 pg (27.0-31.0); Mean Platelet Volume 8.8 fL (7.4-10.4); Platelet Count 485 thou/uL (130-400); RBC Distribution Width 19.8 % (11.5-14.5); Red Blood Cell (RBC) Count 2.14 mill/uL (4.70-6.10); White Blood Cell (WBC) Count 37.7 thou/uL (4.8-10.8)
[2022-06-01 21:43] LABS: INR-International Normal Ratio 1.2; PTT 31.2 sec (22.9-36.1); Prothrombin Time 15.4 sec (12.0-14.7)
[2022-06-01 21:45] LABS: ALT (SGPT) 115 U/L (8-55); AST (SGOT) 111 U/L (5-34); Albumin 3.4 g/dL (3.5-5.0); Alkaline Phosphatase 405 U/L (40-110); Anion Gap 16 mmol/L (10-20); BUN (Urea Nitrogen) 52 mg/dL (8.9-20.6); Bilirubin, Total 12.5 mg/dL (0.2-1.2); Calc. Creatinine Clearance 0 mL/min (70-130); Calcium 9.1 mg/dL (7.8-10.44); Carbon Dioxide 29 mmol/L (22-29); Chloride 92 mmol/L (98-107); Estimated GFR 58; Globulin 2.6 g/dL (2.4-3.5); Glucose 131 mg/dL (70-105); Magnesium 2.2 mg/dL (1.6-2.6); Potassium 4.9 mmol/L (3.5-5.1); Sodium 132 mmol/L (136-145)
[2022-06-01 21:55] LABS: Anisocytosis SLIGHT = 6-15 cells (100X) (0-5/hpf); Band 3 % (5-11); Hypochromia SLIGHT = 6-15 cells (100X) (0-5/hpf); Large Platelets SLIGHT; Lymphocytes 5 % (21-51); MDiff Complete? YES; Macrocytosis MODERATE=16-30 cells (100X) (0-5/hpf); Monocytes 5 % (0-10); Neutrophil 87 % (42-75); Ovalocytes SLIGHT = 2-5 cells (100X) (0-1/hpf); Platelet Morphology Comment Appears Increased; Polychromasia SLIGHT = 2-3 cells (100X) (0-2/hpf); Target Cells MARKED = >16 cells (100X) (0-1/hpf)
[2022-06-01 22:31] LABS: D-Dimer Test 1.23 *mcg/mL (0.27-0.43)
[2022-06-01] MEDS ORDERED: Cefepime 2 GM VIAL ONE (22:50)
[2022-06-01 23:08] LABS: SARS-CoV-2 NAA Rapid Test Not Detected (NotDetected)
[2022-06-02] MEDS ORDERED: Furosemide 40 MG/4 ML VIAL ONE (00:19)
[2022-06-02] MEDS ORDERED: Aspirin Chewable 81 MG TAB ONE (00:19)
[2022-06-02] MEDS ORDERED: Vancomycin 1 GM/200 ML BAG ONE (00:19)
[2022-06-02 02:00] LABS: Bilirubin Negative (Negative); Blood, Urine Negative (Negative); Clarity Clear (Clear); Glucose, Urine (Dipstick) Normal (Negative); Ketone, Urine Negative (Negative); Leukocyte Negative Leu/uL (Negative); Nitrite Negative (Negative); Protein, Urine (Dipstick) Negative (Neg-Trace); Specific Gravity, Urine 1.014 (1.002-1.036); Urobilinogen Normal mg/dL (Less than 2); pH, Urine 6.5 (5.0-9.0)
[2022-06-02] MEDS ORDERED: Senokot S 8.6-50 MG TAB PO PRN (02:19)
[2022-06-02] MEDS ORDERED: Bisacodyl 5 MG TAB PO PRN (02:19)
[2022-06-02] MEDS ORDERED: Lorazepam 1 MG TAB PO PRN (02:32)
[2022-06-02] MEDS ORDERED: Ondansetron ODT 4 MG TAB PO PRN (02:32)
[2022-06-02] MEDS ORDERED: Electrolyte Replacement Protocol 1 EACH FS SCH (02:45)
[2022-06-02 04:50] LABS: Anion Gap 13 mmol/L (10-20); BUN (Urea Nitrogen) 45 mg/dL (8.9-20.6); Calc. Creatinine Clearance 0 mL/min (70-130); Carbon Dioxide 30 mmol/L (22-29); Chloride 92 mmol/L (98-107); Potassium 4.1 mmol/L (3.5-5.1); Sodium 131 mmol/L (136-145)
[2022-06-02 04:51] LABS: ALT (SGPT) 110 U/L (8-55); AST (SGOT) 116 U/L (5-34); Albumin 3.2 g/dL (3.5-5.0); Alkaline Phosphatase 382 U/L (40-110); Bilirubin, Total 11.6 mg/dL (0.2-1.2); Calcium 8.7 mg/dL (7.8-10.44); Estimated GFR 68; Globulin 2.4 g/dL (2.4-3.5); Glucose 126 mg/dL (70-105); Phosphorus 3.1 mg/dL (2.3-4.7); Protein, Total 5.6 g/dL (6.0-8.3)
[2022-06-02 04:55] LABS: Troponin I 0.077 ng/mL (< 0.028)
[2022-06-02 05:36] VITALS: BMI 26.5
[2022-06-02 05:50] LABS: Anisocytosis SLIGHT = 6-15 cells (100X) (0-5/hpf); Band 3 % (5-11); Eosinophils 1 % (0-10); Hemoglobin 7.6 g/dL (14.0-18.0); Hypochromia SLIGHT = 6-15 cells (100X) (0-5/hpf); Lymphocytes 7 % (21-51); MDiff Complete? YES; Macrocytosis MODERATE=16-30 cells (100X) (0-5/hpf); Mean Corpuscular HGB CONC 30.6 g/dL (32.0-36.0); Mean Platelet Volume 8.8 fL (7.4-10.4); Monocytes 2 % (0-10); Neutrophil 87 % (42-75); Ovalocytes SLIGHT = 2-5 cells (100X) (0-1/hpf); Platelet Count 424 thou/uL (130-400); Platelet Morphology Comment Appears Increased; Polychromasia SLIGHT = 2-3 cells (100X) (0-2/hpf); RBC Distribution Width 20.5 % (11.5-14.5); Red Blood Cell (RBC) Count 2.12 mill/uL (4.70-6.10); Tear Drops MARKED = >16 cells (100X) (0-1/hpf); White Blood Cell (WBC) Count 31.9 thou/uL (4.8-10.8)
[2022-06-02] MEDS: Furosemide 40 MG/4 ML VIAL SLOW IVP SCH ×2 (05:52→13:45)
[2022-06-02] MEDS: Octreotide Acetate 50 MCG/ML AMP SC SCH ×2 (05:52→13:45)
[2022-06-02] MEDS: Thiamine HCl 200 MG/2 ML VIAL SLOW IVP SCH (05:59)
[2022-06-02 07:52] LABS: Troponin I 0.077 ng/mL (< 0.028)
[2022-06-02] MEDS ORDERED: Vancomycin 1 GM in Premix Bag 1 BAG IVPB SCH (09:00)
[2022-06-02] MEDS: chlordiazePOXIDE HCl 5 MG CAP PO SCH (09:07)
[2022-06-02] MEDS: Midodrine HCl 5 MG TAB PO SCH ×3 (09:08→21:08)
[2022-06-02] MEDS: Ferrous Sulfate 325 MG TAB PO SCH ×2 (09:08→16:51)
[2022-06-02] MEDS: Folic Acid 1 MG TAB PO SCH (09:08)
[2022-06-02] MEDS: Multivit, Therapeutic 1 TAB PO SCH (09:08)
[2022-06-02] MEDS: prednisoLONE 10 MG ODT TAB PO SCH (09:09)
[2022-06-02] MEDS: Pantoprazole 40 MG VIAL IVP SCH ×2 (09:09→21:09)
[2022-06-02] MEDS: Cefepime 1 GM in Sodium Chloride 0.9% 100 ML IVPB SCH ×2 (11:07→23:36)
[2022-06-02] MEDS: VANCOMYCIN 1.25 GM/250 ML BAG 1.25 GM in Premix Bag 1 BAG IVPB SCH (13:46)
[2022-06-02] MEDS: Octreotide Acetate 500 MCG/ML VIAL SC SCH (21:09)
[2022-06-03] MEDS: VANCOMYCIN 1.25 GM/250 ML BAG 1.25 GM in Premix Bag 1 BAG IVPB SCH (00:22)
[2022-06-03] MEDS ORDERED: Lorazepam 1 MG TAB PO PRN (02:32)
[2022-06-03 05:21] LABS: Anion Gap 15 mmol/L (10-20); BUN (Urea Nitrogen) 32 mg/dL (8.9-20.6); Calc. Creatinine Clearance 92 mL/min (70-130); Calcium 8.8 mg/dL (7.8-10.44); Carbon Dioxide 27 mmol/L (22-29); Chloride 97 mmol/L (98-107); Estimated GFR 78; Glucose 152 mg/dL (70-105); Potassium 4.6 mmol/L (3.5-5.1); Sodium 134 mmol/L (136-145)
[2022-06-03 06:14] LABS: Band 5 % (5-11); Hemoglobin 8.1 g/dL (14.0-18.0); Hypochromia SLIGHT = 6-15 cells (100X) (0-5/hpf); Lymphocytes 2 % (21-51); MDiff Complete? YES; Macrocytosis SLIGHT = 6-15 cells (100X) (0-5/hpf); Mean Corpuscular HGB CONC 31.8 g/dL (32.0-36.0); Mean Corpuscular Hemoglobin 37.7 pg (27.0-31.0); Mean Platelet Volume 8.8 fL (7.4-10.4); Monocytes 8 % (0-10); Neutrophil 85 % (42-75); Platelet Count 416 thou/uL (130-400); Platelet Morphology Comment Appears Increased; Polychromasia SLIGHT = 2-3 cells (100X) (0-2/hpf); Red Blood Cell (RBC) Count 2.15 mill/uL (4.70-6.10); Target Cells SLIGHT = 2-5 cells (100X) (0-1/hpf); White Blood Cell (WBC) Count 24.3 thou/uL (4.8-10.8)
[2022-06-03] MEDS: Octreotide Acetate 500 MCG/ML VIAL SC SCH ×3 (06:16→21:31)
[2022-06-03] MEDS: Furosemide 40 MG/4 ML VIAL SLOW IVP SCH ×2 (06:17→15:02)
[2022-06-03] MEDS: Thiamine HCl 200 MG/2 ML VIAL SLOW IVP SCH (06:17)
[2022-06-03] MEDS: Midodrine HCl 5 MG TAB PO SCH ×3 (08:26→21:31)
[2022-06-03] MEDS: chlordiazePOXIDE HCl 5 MG CAP PO SCH (08:26)
[2022-06-03] MEDS: Folic Acid 1 MG TAB PO SCH (08:26)
[2022-06-03] MEDS: prednisoLONE 10 MG ODT TAB PO SCH (08:27)
[2022-06-03] MEDS: Multivit, Therapeutic 1 TAB PO SCH (08:27)
[2022-06-03] MEDS: Pantoprazole 40 MG VIAL IVP SCH ×2 (08:27→21:31)
[2022-06-03] MEDS: Ferrous Sulfate 325 MG TAB PO SCH ×2 (08:27→17:00)
[2022-06-03] MEDS: Cefepime 1 GM in Sodium Chloride 0.9% 100 ML IVPB SCH ×2 (11:00→21:31)
[2022-06-03 12:18] LABS: Vancomycin, Trough 26.4 ug/mL
[2022-06-03] MEDS ORDERED: Vancomycin 1 GM in Premix Bag 1 BAG IVPB SCH (13:00)
[2022-06-03] MEDS ORDERED: Cyanocobalamin 1000 MCG/ML VIAL IM SCH (14:30)
[2022-06-04] MEDS: Vancomycin 1 GM in Premix Bag 1 BAG IVPB SCH ×2 (01:29→12:37)
[2022-06-04] MEDS ORDERED: Lorazepam 1 MG TAB PO PRN (02:32)
[2022-06-04 05:39] LABS: #Eosinphils 0.1 thou/uL (0.0-0.7); #Lymphocytes 1.7 thou/uL (1.20-3.40); #Monocytes 1.8 thou/uL (0.11-0.59); #Neutrophils 19.9 thou/uL (1.40-6.50); %Basophils 0.2 % (0.0-1.0); %Eosinophils 0.5 % (0.0-10.0); %Lymphocytes 7.2 % (21.0-51.0); %Monocytes 7.7 % (0.0-10.0); %Neutrophils 84.5 % (42.0-75.0); Hemoglobin 7.6 g/dL (14.0-18.0); Mean Corpuscular Hemoglobin 35.8 pg (27.0-31.0); Mean Platelet Volume 8.7 fL (7.4-10.4); Platelet Count 380 thou/uL (130-400); RBC Distribution Width 21.3 % (11.5-14.5); Red Blood Cell (RBC) Count 2.12 mill/uL (4.70-6.10); White Blood Cell (WBC) Count 23.5 thou/uL (4.8-10.8)
[2022-06-04 05:46] LABS: Anion Gap 14 mmol/L (10-20); BUN (Urea Nitrogen) 30 mg/dL (8.9-20.6); Calc. Creatinine Clearance 82 mL/min (70-130); Carbon Dioxide 27 mmol/L (22-29); Chloride 95 mmol/L (98-107); Estimated GFR 69; Glucose 172 mg/dL (70-105); Potassium 4.1 mmol/L (3.5-5.1); Sodium 132 mmol/L (136-145)
[2022-06-04] MEDS: Thiamine HCl 200 MG/2 ML VIAL SLOW IVP SCH (06:07)
[2022-06-04] MEDS: Furosemide 40 MG/4 ML VIAL SLOW IVP SCH ×2 (06:07→14:28)
[2022-06-04] MEDS: Octreotide Acetate 500 MCG/ML VIAL SC SCH ×3 (06:08→20:42)
[2022-06-04] MEDS: Multivit, Therapeutic 1 TAB PO SCH (09:04)
[2022-06-04] MEDS: Midodrine HCl 5 MG TAB PO SCH ×3 (09:04→20:42)
[2022-06-04] MEDS: Ferrous Sulfate 325 MG TAB PO SCH ×2 (09:05→17:41)
[2022-06-04] MEDS: prednisoLONE 10 MG ODT TAB PO SCH (09:05)
[2022-06-04] MEDS: chlordiazePOXIDE HCl 5 MG CAP PO SCH (09:05)
[2022-06-04] MEDS: Folic Acid 1 MG TAB PO SCH (09:05)
[2022-06-04] MEDS: Pantoprazole 40 MG VIAL IVP SCH ×2 (09:06→20:42)
[2022-06-04] MEDS ORDERED: Furosemide 40 MG/4 ML VIAL SLOW IVP SCH (12:19)
[2022-06-04] MEDS: Cefepime 1 GM in Sodium Chloride 0.9% 100 ML IVPB SCH ×2 (12:36→20:43)
[2022-06-05] MEDS: Vancomycin 1 GM in Premix Bag 1 BAG IVPB SCH (00:08)
[2022-06-05] MEDS: Lorazepam 0.5 MG TAB PO PRN ×2 (02:00→05:54)
[2022-06-05 05:38] LABS: #Eosinphils 0.1 thou/uL (0.0-0.7); #Monocytes 1.4 thou/uL (0.11-0.59); #Neutrophils 16.6 thou/uL (1.40-6.50); %Basophils 0.1 % (0.0-1.0); %Eosinophils 0.4 % (0.0-10.0); %Lymphocytes 5.4 % (21.0-51.0); %Monocytes 7.2 % (0.0-10.0); Hemoglobin 8.3 g/dL (14.0-18.0); Mean Corpuscular HGB CONC 30.2 g/dL (32.0-36.0); Mean Corpuscular Hemoglobin 35.8 pg (27.0-31.0); Mean Platelet Volume 8.5 fL (7.4-10.4); Platelet Count 356 thou/uL (130-400); RBC Distribution Width 20.6 % (11.5-14.5); Red Blood Cell (RBC) Count 2.32 mill/uL (4.70-6.10)
[2022-06-05 05:48] LABS: ALT (SGPT) 125 U/L (8-55); AST (SGOT) 113 U/L (5-34); Albumin 3.5 g/dL (3.5-5.0); Alkaline Phosphatase 488 U/L (40-110); Anion Gap 14 mmol/L (10-20); BUN (Urea Nitrogen) 32 mg/dL (8.9-20.6); Bilirubin, Total 9.8 mg/dL (0.2-1.2); Calc. Creatinine Clearance 114 mL/min (70-130); Calcium 9.3 mg/dL (7.8-10.44); Carbon Dioxide 29 mmol/L (22-29); Chloride 96 mmol/L (98-107); Estimated GFR 102; Globulin 2.3 g/dL (2.4-3.5); Glucose 138 mg/dL (70-105); Potassium 4.4 mmol/L (3.5-5.1); Protein, Total 5.8 g/dL (6.0-8.3); Sodium 135 mmol/L (136-145)
[2022-06-05] MEDS: Octreotide Acetate 500 MCG/ML VIAL SC SCH ×3 (05:54→21:33)
[2022-06-05] MEDS: Furosemide 40 MG/4 ML VIAL SLOW IVP SCH ×2 (05:55→14:07)
[2022-06-05] MEDS: Midodrine HCl 5 MG TAB PO SCH ×3 (09:08→21:32)
[2022-06-05] MEDS: prednisoLONE 10 MG ODT TAB PO SCH (09:08)
[2022-06-05] MEDS: Ferrous Sulfate 325 MG TAB PO SCH ×2 (09:08→17:45)
[2022-06-05] MEDS: Multivit, Therapeutic 1 TAB PO SCH (09:09)
[2022-06-05] MEDS: Thiamine 100 MG TAB PO SCH (09:09)
[2022-06-05] MEDS: chlordiazePOXIDE HCl 5 MG CAP PO SCH (09:09)
[2022-06-05] MEDS: Pantoprazole 40 MG VIAL IVP SCH ×2 (09:09→21:32)
[2022-06-05] MEDS: Folic Acid 1 MG TAB PO SCH (09:09)
[2022-06-05] MEDS: Cefepime 1 GM in Sodium Chloride 0.9% 100 ML IVPB SCH (12:35)
[2022-06-05 12:47] LABS: Vancomycin, Trough 24.1 ug/mL
[2022-06-05] MEDS: Vancomycin HCl 750 MG in Sodium Chloride 0.9% 250 ML 250 ML IVPB SCH (14:07)
[2022-06-05] MEDS: Cefepime 2 GM in Sodium Chloride 0.9% 100 ML IVPB SCH (23:26)
[2022-06-06] MEDS: Vancomycin HCl 750 MG in Sodium Chloride 0.9% 250 ML 250 ML IVPB SCH ×2 (00:38→13:18)
[2022-06-06] MEDS: Octreotide Acetate 500 MCG/ML VIAL SC SCH ×3 (05:49→20:59)
[2022-06-06] MEDS: Furosemide 40 MG/4 ML VIAL SLOW IVP SCH ×2 (05:49→15:10)
[2022-06-06 06:22] LABS: ALT (SGPT) 130 U/L (8-55); AST (SGOT) 108 U/L (5-34); Albumin 3.3 g/dL (3.5-5.0); Alkaline Phosphatase 477 U/L (40-110); Anion Gap 12 mmol/L (10-20); BUN (Urea Nitrogen) 29 mg/dL (8.9-20.6); Bilirubin, Total 8.5 mg/dL (0.2-1.2); Calc. Creatinine Clearance 113 mL/min (70-130); Calcium 8.9 mg/dL (7.8-10.44); Carbon Dioxide 28 mmol/L (22-29); Chloride 98 mmol/L (98-107); Estimated GFR 104; Globulin 2.7 g/dL (2.4-3.5); Glucose 166 mg/dL (70-105); Sodium 134 mmol/L (136-145)
[2022-06-06 08:07] LABS: #Eosinphils 0.1 thou/uL (0.0-0.7); #Lymphocytes 1.5 thou/uL (1.20-3.40); #Monocytes 1.4 thou/uL (0.11-0.59); #Neutrophils 16.8 thou/uL (1.40-6.50); %Basophils 0.2 % (0.0-1.0); %Eosinophils 0.7 % (0.0-10.0); %Lymphocytes 7.3 % (21.0-51.0); %Neutrophils 84.8 % (42.0-75.0); Hemoglobin 9.1 g/dL (14.0-18.0); Mean Corpuscular HGB CONC 31.6 g/dL (32.0-36.0); Mean Corpuscular Hemoglobin 36.8 pg (27.0-31.0); Mean Platelet Volume 8.5 fL (7.4-10.4); Platelet Count 331 thou/uL (130-400); RBC Distribution Width 19.6 % (11.5-14.5); Red Blood Cell (RBC) Count 2.47 mill/uL (4.70-6.10); White Blood Cell (WBC) Count 19.8 thou/uL (4.8-10.8)
[2022-06-06 08:31] LABS: ALT (SGPT) 141 U/L (8-55); AST (SGOT) 111 U/L (5-34); Albumin 3.7 g/dL (3.5-5.0); Alkaline Phosphatase 544 U/L (40-110); Anion Gap 13 mmol/L (10-20); BUN (Urea Nitrogen) 29 mg/dL (8.9-20.6); Bilirubin, Total 9.2 mg/dL (0.2-1.2); Calc. Creatinine Clearance 109 mL/min (70-130); Calcium 9.3 mg/dL (7.8-10.44); Carbon Dioxide 30 mmol/L (22-29); Chloride 96 mmol/L (98-107); Estimated GFR 99; Glucose 148 mg/dL (70-105); Potassium 3.8 mmol/L (3.5-5.1); Protein, Total 6.7 g/dL (6.0-8.3); Sodium 135 mmol/L (136-145)
[2022-06-06] MEDS: Pantoprazole 40 MG VIAL IVP SCH ×2 (09:05→20:59)
[2022-06-06] MEDS: Ferrous Sulfate 325 MG TAB PO SCH ×2 (09:08→17:55)
[2022-06-06] MEDS: chlordiazePOXIDE HCl 5 MG CAP PO SCH (09:08)
[2022-06-06] MEDS: Multivit, Therapeutic 1 TAB PO SCH (09:09)
[2022-06-06] MEDS: Spironolactone 100 MG TAB PO SCH (09:09)
[2022-06-06] MEDS: Folic Acid 1 MG TAB PO SCH (09:09)
[2022-06-06] MEDS: Thiamine 100 MG TAB PO SCH (09:09)
[2022-06-06] MEDS: Midodrine HCl 5 MG TAB PO SCH ×3 (09:10→20:58)
[2022-06-06] MEDS: prednisoLONE 10 MG ODT TAB PO SCH (09:11)
[2022-06-06] MEDS: Cefepime 2 GM in Sodium Chloride 0.9% 100 ML IVPB SCH ×2 (11:24→23:26)
[2022-06-06] MEDS: Lorazepam 0.5 MG TAB PO PRN ×2 (17:55→23:26)
[2022-06-07 00:35] LABS: Vancomycin, Trough 21.1 ug/mL
[2022-06-07 05:32] LABS: #Eosinphils 0.1 thou/uL (0.0-0.7); #Monocytes 1.4 thou/uL (0.11-0.59); #Neutrophils 14.4 thou/uL (1.40-6.50); %Basophils 0.1 % (0.0-1.0); %Eosinophils 0.5 % (0.0-10.0); %Lymphocytes 5.7 % (21.0-51.0); %Monocytes 8.4 % (0.0-10.0); %Neutrophils 85.3 % (42.0-75.0); Hemoglobin 8.6 g/dL (14.0-18.0); Mean Corpuscular HGB CONC 31.3 g/dL (32.0-36.0); Mean Corpuscular Hemoglobin 35.8 pg (27.0-31.0); Mean Platelet Volume 8.2 fL (7.4-10.4); Platelet Count 276 thou/uL (130-400); RBC Distribution Width 19.1 % (11.5-14.5); Red Blood Cell (RBC) Count 2.39 mill/uL (4.70-6.10); White Blood Cell (WBC) Count 16.9 thou/uL (4.8-10.8)
[2022-06-07 05:52] LABS: ALT (SGPT) 142 U/L (8-55); AST (SGOT) 99 U/L (5-34); Albumin 3.5 g/dL (3.5-5.0); Alkaline Phosphatase 483 U/L (40-110); Anion Gap 13 mmol/L (10-20); BUN (Urea Nitrogen) 29 mg/dL (8.9-20.6); Bilirubin, Total 8.9 mg/dL (0.2-1.2); Calc. Creatinine Clearance 99 mL/min (70-130); Calcium 9.3 mg/dL (7.8-10.44); Carbon Dioxide 30 mmol/L (22-29); Chloride 98 mmol/L (98-107); Estimated GFR 88; Globulin 2.6 g/dL (2.4-3.5); Glucose 125 mg/dL (70-105); Potassium 4.2 mmol/L (3.5-5.1); Protein, Total 6.1 g/dL (6.0-8.3); Sodium 137 mmol/L (136-145)
[2022-06-07] MEDS: Furosemide 40 MG/4 ML VIAL SLOW IVP SCH (06:37)
[2022-06-07] MEDS: Octreotide Acetate 500 MCG/ML VIAL SC SCH (07:31)
[2022-06-07] MEDS: Cefepime 2 GM in Sodium Chloride 0.9% 100 ML IVPB SCH (10:14)
[2022-06-07] MEDS: Folic Acid 1 MG TAB PO SCH (10:15)
[2022-06-07] MEDS: Ferrous Sulfate 325 MG TAB PO SCH (10:15)
[2022-06-07] MEDS: Multivit, Therapeutic 1 TAB PO SCH (10:15)
[2022-06-07] MEDS: Midodrine HCl 5 MG TAB PO SCH (10:15)
[2022-06-07] MEDS: Pantoprazole 40 MG VIAL IVP SCH (10:16)
[2022-06-07] MEDS: Spironolactone 100 MG TAB PO SCH (10:16)
[2022-06-07] MEDS: prednisoLONE 10 MG ODT TAB PO SCH (10:16)
[2022-06-07] MEDS: Thiamine 100 MG TAB PO SCH (10:20)
[2022-06-07] MEDS: chlordiazePOXIDE HCl 5 MG CAP PO SCH (10:53)
[2022-06-07 12:24] VITALS: BP 131/85; TEMP 96.8
[2022-06-07] MEDS ORDERED: Vancomycin HCl 500 MG in Sodium Chloride 0.9% 100 ML IVPB SCH (13:00)
[2022-06-10 04:09] LABS: QuantiFERON-TB Gold Plus Negative (Negative)
== END 2022-06-07 13:55 | disposition home or self-care (01) | DRG 871 ==
LOC: ERS 20:18 → NEURO 06-02 01:57
PROVIDERS: ADMIT Student in an Organized Health Care Education/Training Program; ATTEND Student in an Organized Health Care Education/Training Program
DX: A41.9 Sepsis, unspecified organism (principal); I50.33 Acute on chronic diastolic (congestive) heart failure; J18.9 Pneumonia, unspecified organism; J96.01 Acute respiratory failure with hypoxia; N17.9 Acute kidney failure, unspecified; J98.11 Atelectasis; E87.1 Hypo-osmolality and hyponatremia; K70.31 Alcoholic cirrhosis of liver with ascites; Z20.822 Contact with and (suspected) exposure to COVID-19; R79.89 Other specified abnormal findings of blood chemistry; N18.9 Chronic kidney disease, unspecified; K70.11 Alcoholic hepatitis with ascites; F10.10 Alcohol abuse, uncomplicated; K21.9 Gastro-esophageal reflux disease without esophagitis; K72.90 Hepatic failure, unspecified without coma; D63.1 Anemia in chronic kidney disease; I27.20 Pulmonary hypertension, unspecified; Z79.899 Other long term (current) drug therapy
CPT/HCPCS: 36415; 71275; 76705; 80048; 80053; 80202; 81003; 82140; 82553; 83605; 83735; 83880; 84100; 84145; 84484; 85025; 85379; 85610; 85730; 86480; 87040; 87086; 93005; 93798; 94760; 96365; 96367; 96375; C9113; J0692; J1940; J1956; J2354; J3370; J3411; J3420; J3490; J7050; J7510; Q9967

== ENCOUNTER 2022-06-11 20:51 | Inpatient (IN) | payer OTHER ==
[2022-06-11 21:59] LABS: Bilirubin Negative (Negative); Blood, Urine Negative (Negative); Clarity Clear (Clear); Glucose, Urine (Dipstick) Normal (Negative); Ketone, Urine Negative (Negative); Leukocyte Negative Leu/uL (Negative); Nitrite Negative (Negative); Protein, Urine (Dipstick) Negative (Neg-Trace); Specific Gravity, Urine 1.012 (1.002-1.036); pH, Urine 5.5 (5.0-9.0)
[2022-06-11 22:07] LABS: Amphetamine Not Detected (NotDetected); Barbiturates Screen Not Detected (NotDetected); Benzodiazepine Screen Detected (NotDetected); Cocaine Metabolite Screen Not Detected (NotDetected); Methadone Not Detected (NotDetected); Methamphetamine Not Detected (NotDetected); Opiate Screen Not Detected (NotDetected); Oxycodone Screen Not Detected (NotDetected); Phencyclidine (PCP) Not Detected (NotDetected); THC/Cannabinoid Screen Detected (NotDetected); Tricyclic Screen Not Detected (NotDetected)
[2022-06-11 22:10] LABS: ALT (SGPT) 179 U/L (8-55); AST (SGOT) 103 U/L (5-34); Albumin 4.1 g/dL (3.5-5.0); Alcohol Less than 10 mg/dL (Less than 10); Alkaline Phosphatase 408 U/L (40-110); Anion Gap 16 mmol/L (10-20); BUN (Urea Nitrogen) 24 mg/dL (8.9-20.6); Bilirubin, Total 7.3 mg/dL (0.2-1.2); Calc. Creatinine Clearance 0 mL/min (70-130); Calcium 9.7 mg/dL (7.8-10.44); Carbon Dioxide 28 mmol/L (22-29); Chloride 104 mmol/L (98-107); Estimated GFR 92; Globulin 2.2 g/dL (2.4-3.5); Glucose 166 mg/dL (70-105); Potassium 4.1 mmol/L (3.5-5.1); Protein, Total 6.3 g/dL (6.0-8.3); Sodium 144 mmol/L (136-145)
[2022-06-11 22:27] LABS: Prothrombin Time 13.2 sec (12.0-14.7)
[2022-06-11 22:28] LABS: PTT 25.2 sec (22.9-36.1)
[2022-06-11 22:30] LABS: #Lymphocytes 0.9 thou/uL (1.20-3.40); #Neutrophils 8.9 thou/uL (1.40-6.50); %Basophils 0.1 % (0.0-1.0); %Eosinophils 0.3 % (0.0-10.0); %Lymphocytes 7.9 % (21.0-51.0); %Neutrophils 82.8 % (42.0-75.0); Hemoglobin 9.1 g/dL (14.0-18.0); Mean Corpuscular HGB CONC 30.5 g/dL (32.0-36.0); Mean Corpuscular Hemoglobin 34.7 pg (27.0-31.0); Mean Platelet Volume 8.9 fL (7.4-10.4); Platelet Count 283 thou/uL (130-400); Red Blood Cell (RBC) Count 2.63 mill/uL (4.70-6.10); White Blood Cell (WBC) Count 10.8 thou/uL (4.8-10.8)
[2022-06-12] MEDS ORDERED: Senokot S 8.6-50 MG TAB PO PRN (00:02)
[2022-06-12] MEDS ORDERED: Ondansetron PF 4 MG/2 ML Vial IVP PRN (00:02)
[2022-06-12] MEDS ORDERED: Ondansetron ODT 4 MG TAB PO PRN (00:02)
[2022-06-12] MEDS ORDERED: Calcium Carbonate 500 MG ChewTAB PO PRN (00:02)
[2022-06-12 00:58] LABS: Prothrombin Time 13.3 sec (12.0-14.7)
[2022-06-12 00:59] LABS: PTT 25.9 sec (22.9-36.1)
[2022-06-12 03:14] VITALS: BMI 26.6
[2022-06-12 04:51] LABS: #Basophils 0.1 thou/uL (0.0-0.2); #Eosinphils 0.2 thou/uL (0.0-0.7); #Lymphocytes 1.9 thou/uL (1.20-3.40); #Monocytes 1.1 thou/uL (0.11-0.59); #Neutrophils 6.9 thou/uL (1.40-6.50); %Basophils 1.2 % (0.0-1.0); %Eosinophils 1.8 % (0.0-10.0); %Lymphocytes 18.7 % (21.0-51.0); %Monocytes 11.1 % (0.0-10.0); %Neutrophils 67.3 % (42.0-75.0); Hemoglobin 8.1 g/dL (14.0-18.0); Mean Corpuscular HGB CONC 31.8 g/dL (32.0-36.0); Mean Platelet Volume 8.4 fL (7.4-10.4); Platelet Count 253 thou/uL (130-400); RBC Distribution Width 17.4 % (11.5-14.5); Red Blood Cell (RBC) Count 2.26 mill/uL (4.70-6.10); White Blood Cell (WBC) Count 10.3 thou/uL (4.8-10.8)
[2022-06-12 05:02] LABS: Prothrombin Time 13.6 sec (12.0-14.7)
[2022-06-12 05:03] LABS: PTT 25.5 sec (22.9-36.1)
[2022-06-12 05:05] LABS: ALT (SGPT) 142 U/L (8-55); AST (SGOT) 72 U/L (5-34); Albumin 3.5 g/dL (3.5-5.0); Alkaline Phosphatase 318 U/L (40-110); Anion Gap 12 mmol/L (10-20); BUN (Urea Nitrogen) 22 mg/dL (8.9-20.6); Bilirubin, Total 5.9 mg/dL (0.2-1.2); CRP (Inflammatory) 0.86 mg/dL (= or < 0.5); Calc. Creatinine Clearance 118 mL/min (70-130); Calcium 9.4 mg/dL (7.8-10.44); Carbon Dioxide 30 mmol/L (22-29); Chloride 106 mmol/L (98-107); Estimated GFR 113; Glucose 103 mg/dL (70-105); Lipase 41 U/L (8-78); Potassium 3.6 mmol/L (3.5-5.1); Protein, Total 5.5 g/dL (6.0-8.3); Sodium 144 mmol/L (136-145)
[2022-06-12] MEDS ORDERED: Thiamine 100 MG TAB PO SCH (09:00)
[2022-06-12] MEDS: Multivit, Therapeutic 1 TAB PO SCH (09:12)
[2022-06-12] MEDS: Folic Acid 1 MG TAB PO SCH (09:12)
[2022-06-12] MEDS: methylPREDNISolone Sod Succ 40 MG VIAL IVP SCH (09:12)
[2022-06-12] MEDS: Ferrous Sulfate 325 MG TAB PO SCH ×2 (09:12→18:19)
[2022-06-12 17:24] LABS: Hemoglobin 8.8 g/dL (14.0-18.0); Platelet Count 301 thou/uL (130-400)
[2022-06-12 17:39] LABS: Magnesium 1.6 mg/dL (1.6-2.6); Phosphorus 3.1 mg/dL (2.3-4.7)
[2022-06-12] MEDS: Pantoprazole 40 MG VIAL IVP SCH (20:22)
[2022-06-13 06:41] LABS: #Basophils 0.1 thou/uL (0.0-0.2); #Eosinphils 0.4 thou/uL (0.0-0.7); #Lymphocytes 3.4 thou/uL (1.20-3.40); #Monocytes 1.3 thou/uL (0.11-0.59); #Neutrophils 7.6 thou/uL (1.40-6.50); %Basophils 0.6 % (0.0-1.0); %Eosinophils 3.3 % (0.0-10.0); %Lymphocytes 26.4 % (21.0-51.0); %Monocytes 10.1 % (0.0-10.0); %Neutrophils 59.6 % (42.0-75.0); Hemoglobin 8.4 g/dL (14.0-18.0); Mean Corpuscular HGB CONC 31.7 g/dL (32.0-36.0); Mean Corpuscular Hemoglobin 35.4 pg (27.0-31.0); Mean Platelet Volume 8.3 fL (7.4-10.4); Platelet Count 271 thou/uL (130-400); RBC Distribution Width 17.1 % (11.5-14.5); Red Blood Cell (RBC) Count 2.36 mill/uL (4.70-6.10); White Blood Cell (WBC) Count 12.7 thou/uL (4.8-10.8)
[2022-06-13 06:58] LABS: ALT (SGPT) 158 U/L (8-55); AST (SGOT) 91 U/L (5-34); Albumin 3.5 g/dL (3.5-5.0); Alkaline Phosphatase 342 U/L (40-110); Anion Gap 13 mmol/L (10-20); BUN (Urea Nitrogen) 15 mg/dL (8.9-20.6); Bilirubin, Total 5.6 mg/dL (0.2-1.2); Calc. Creatinine Clearance 125 mL/min (70-130); Calcium 9.4 mg/dL (7.8-10.44); Carbon Dioxide 27 mmol/L (22-29); Chloride 99 mmol/L (98-107); Estimated GFR 115; Globulin 2.3 g/dL (2.4-3.5); Glucose 90 mg/dL (70-105); Potassium 3.5 mmol/L (3.5-5.1); Protein, Total 5.8 g/dL (6.0-8.3); Sodium 135 mmol/L (136-145)
[2022-06-13] MEDS: Pantoprazole 40 MG VIAL IVP SCH (08:49)
[2022-06-13] MEDS: Folic Acid 1 MG TAB PO SCH (08:49)
[2022-06-13] MEDS: Ferrous Sulfate 325 MG TAB PO SCH ×2 (08:49→17:10)
[2022-06-13] MEDS: methylPREDNISolone Sod Succ 40 MG VIAL IVP SCH (08:49)
[2022-06-13] MEDS: Multivit, Therapeutic 1 TAB PO SCH (08:49)
[2022-06-14 06:42] LABS: #Basophils 0.1 thou/uL (0.0-0.2); #Eosinphils 0.3 thou/uL (0.0-0.7); #Lymphocytes 2.8 thou/uL (1.20-3.40); #Monocytes 1.3 thou/uL (0.11-0.59); #Neutrophils 7.9 thou/uL (1.40-6.50); %Basophils 0.6 % (0.0-1.0); %Eosinophils 2.3 % (0.0-10.0); %Lymphocytes 22.7 % (21.0-51.0); %Monocytes 10.6 % (0.0-10.0); %Neutrophils 63.9 % (42.0-75.0); Hemoglobin 8.3 g/dL (14.0-18.0); Mean Corpuscular HGB CONC 30.7 g/dL (32.0-36.0); Mean Corpuscular Hemoglobin 33.8 pg (27.0-31.0); Mean Platelet Volume 8.4 fL (7.4-10.4); Platelet Count 287 thou/uL (130-400); Red Blood Cell (RBC) Count 2.47 mill/uL (4.70-6.10); White Blood Cell (WBC) Count 12.4 thou/uL (4.8-10.8)
[2022-06-14 06:50] LABS: ALT (SGPT) 146 U/L (8-55); AST (SGOT) 74 U/L (5-34); Albumin 3.7 g/dL (3.5-5.0); Alkaline Phosphatase 329 U/L (40-110); Anion Gap 11 mmol/L (10-20); BUN (Urea Nitrogen) 17 mg/dL (8.9-20.6); Bilirubin, Total 5.3 mg/dL (0.2-1.2); Calc. Creatinine Clearance 116 mL/min (70-130); Calcium 9.1 mg/dL (7.8-10.44); Carbon Dioxide 26 mmol/L (22-29); Chloride 102 mmol/L (98-107); Estimated GFR 112; Globulin 2.1 g/dL (2.4-3.5); Glucose 105 mg/dL (70-105); Potassium 3.3 mmol/L (3.5-5.1); Protein, Total 5.8 g/dL (6.0-8.3); Sodium 136 mmol/L (136-145)
[2022-06-14] MEDS: methylPREDNISolone Sod Succ 40 MG VIAL IVP SCH (08:36)
[2022-06-14] MEDS: Multivit, Therapeutic 1 TAB PO SCH (08:36)
[2022-06-14] MEDS: pyridOXINE 50 MG (B6) TAB PO SCH (08:36)
[2022-06-14] MEDS: Folic Acid 1 MG TAB PO SCH (08:36)
[2022-06-14] MEDS: Ferrous Sulfate 325 MG TAB PO SCH ×2 (08:36→17:18)
[2022-06-14] MEDS ORDERED: Potassium Chloride 20 MEQ TAB PO SCH (15:30)
[2022-06-15 06:52] LABS: ALT (SGPT) 139 U/L (8-55); AST (SGOT) 68 U/L (5-34); Albumin 3.6 g/dL (3.5-5.0); Alkaline Phosphatase 304 U/L (40-110); Anion Gap 12 mmol/L (10-20); BUN (Urea Nitrogen) 14 mg/dL (8.9-20.6); Bilirubin, Total 4.4 mg/dL (0.2-1.2); Calc. Creatinine Clearance 121 mL/min (70-130); Calcium 8.9 mg/dL (7.8-10.44); Carbon Dioxide 26 mmol/L (22-29); Chloride 104 mmol/L (98-107); Estimated GFR 114; Globulin 2.1 g/dL (2.4-3.5); Glucose 103 mg/dL (70-105); Potassium 3.6 mmol/L (3.5-5.1); Protein, Total 5.7 g/dL (6.0-8.3); Sodium 138 mmol/L (136-145)
[2022-06-15 06:55] LABS: #Eosinphils 0.4 thou/uL (0.0-0.7); #Lymphocytes 3.2 thou/uL (1.20-3.40); #Monocytes 1.2 thou/uL (0.11-0.59); #Neutrophils 6.9 thou/uL (1.40-6.50); %Basophils 0.1 % (0.0-1.0); %Eosinophils 3.8 % (0.0-10.0); %Lymphocytes 27.3 % (21.0-51.0); %Monocytes 10.1 % (0.0-10.0); %Neutrophils 58.8 % (42.0-75.0); Hemoglobin 8.1 g/dL (14.0-18.0); MDiff Complete? YES; Macrocytosis SLIGHT = 6-15 cells (100X) (0-5/hpf); Mean Corpuscular HGB CONC 31.6 g/dL (32.0-36.0); Mean Corpuscular Hemoglobin 34.5 pg (27.0-31.0); Mean Platelet Volume 8.2 fL (7.4-10.4); Platelet Count 292 thou/uL (130-400); RBC Distribution Width 16.5 % (11.5-14.5); Red Blood Cell (RBC) Count 2.34 mill/uL (4.70-6.10); White Blood Cell (WBC) Count 11.7 thou/uL (4.8-10.8)
[2022-06-15] MEDS ORDERED: Spironolactone 25 MG TAB PO SCH (08:00)
[2022-06-15 08:38] LABS: Magnesium 1.8 mg/dL (1.6-2.6)
[2022-06-15 08:51] VITALS: BP 137/85; TEMP 97.7
[2022-06-15] MEDS ORDERED: Polyethylene Glycol 3350 17 GM Packet PO SCH (09:00)
[2022-06-15] MEDS ORDERED: Furosemide 20 MG/2 ML VIAL SLOW IVP SCH (09:00)
[2022-06-15] MEDS: pyridOXINE 50 MG (B6) TAB PO SCH (09:42)
[2022-06-15] MEDS: Folic Acid 1 MG TAB PO SCH (09:43)
[2022-06-15] MEDS: Ferrous Sulfate 325 MG TAB PO SCH (09:43)
[2022-06-15] MEDS: methylPREDNISolone Sod Succ 40 MG VIAL IVP SCH (09:43)
[2022-06-15] MEDS: Multivit, Therapeutic 1 TAB PO SCH (09:43)
== END 2022-06-15 16:29 | disposition home or self-care (01) | DRG 441 ==
LOC: ERS 20:51 → SUATTDRO 20:51 → SURG A 23:59 → T4-A 06-12 19:07
PROVIDERS: ADMIT Internal Medicine; ATTEND Internal Medicine
DX: K76.82 Hepatic encephalopathy (principal); G93.41 Metabolic encephalopathy; K70.30 Alcoholic cirrhosis of liver without ascites; F10.10 Alcohol abuse, uncomplicated; D64.9 Anemia, unspecified; F17.210 Nicotine dependence, cigarettes, uncomplicated; F12.10 Cannabis abuse, uncomplicated; F13.10 Sedative, hypnotic or anxiolytic abuse, uncomplicated; Z79.899 Other long term (current) drug therapy; Z79.52 Long term (current) use of systemic steroids
CPT/HCPCS: 36415; 70450; 70551; 80053; 80306; 80307; 81003; 82140; 82533; 83605; 83690; 83735; 83880; 84100; 84145; 84443; 84484; 85025; 85610; 85730; 86140; 93005; C9113; J1940; J2920; J3411

== ENCOUNTER 2022-11-09 09:20 | Outpatient (CLI) | payer OTHER | END 2022-11-09 09:21 | disposition home or self-care (01) | LOC: BICULT 09:20 | PROVIDERS: ATTEND Physician Assistant Medical | DX: K70.30 Alcoholic cirrhosis of liver without ascites (principal); K76.82 Hepatic encephalopathy; R93.2 Abnormal findings on diagnostic imaging of liver and biliary tract | CPT/HCPCS: 76705 ==

== ENCOUNTER 2022-11-29 18:05 | Emergency (ER) | payer OTHER ==
[~2022-11-29 18:05] MED LIST changes: -Iopamidol 370 76% 100 ML VIAL ONE; +Iopamidol-370 76% 500 ML MDV (1 ML CHARGE) ONE
[2022-11-29 19:03] LABS: #Basophils 0.1 thou/uL (0.0-0.2); #Lymphocytes 1.5 thou/uL (1.20-3.40); #Monocytes 0.8 thou/uL (0.11-0.59); #Neutrophils 13.5 thou/uL (1.40-6.50); %Basophils 0.5 % (0.0-1.0); %Eosinophils 0.3 % (0.0-10.0); %Lymphocytes 9.5 % (21.0-51.0); %Neutrophils 84.6 % (42.0-75.0); Hemoglobin 16.3 g/dL (14.0-18.0); Mean Corpuscular HGB CONC 34.1 g/dL (32.0-36.0); Mean Corpuscular Hemoglobin 31.7 pg (27.0-31.0); Mean Platelet Volume 9.6 fL (7.4-10.4); Platelet Count 313 10x3/uL (130-400); RBC Distribution Width 11.8 % (11.5-14.5); Red Blood Cell (RBC) Count 5.13 mill/uL (4.70-6.10); White Blood Cell (WBC) Count 15.9 10x3/uL (4.8-10.8)
[2022-11-29] MEDS ORDERED: Morphine 2 MG/ML VIAL ONE (19:16)
[2022-11-29] MEDS ORDERED: Morphine 4 MG/ML VIAL ONE ×2 (19:16→20:51)
[2022-11-29] MEDS ORDERED: Ondansetron PF 4 MG/2 ML Vial ONE (19:16)
[2022-11-29 19:40] LABS: ALT (SGPT) 16 U/L (8-55); AST (SGOT) 19 U/L (5-34); Albumin 4.7 g/dL (3.5-5.0); Alkaline Phosphatase 188 U/L (40-110); Anion Gap 17 mmol/L (10-20); BUN (Urea Nitrogen) 11 mg/dL (8.9-20.6); Bilirubin, Total 0.5 mg/dL (0.2-1.2); Calc. Creatinine Clearance 0 mL/min (70-130); Calcium 10.5 mg/dL (7.8-10.44); Carbon Dioxide 26 mmol/L (22-29); Chloride 100 mmol/L (98-107); Estimated GFR 75; Globulin 3.1 g/dL (2.4-3.5); Glucose 121 mg/dL (70-105); Lipase 20 U/L (8-78); Potassium 3.6 mmol/L (3.5-5.1); Protein, Total 7.8 g/dL (6.0-8.3); Sodium 139 mmol/L (136-145)
[2022-11-29 19:49] LABS: Actual Bicarbonate (HCO3v) 28 mEq/L (22-28); Base Excess 3.2 mEq/L (-2.0 to +3.0); Calcium, Ionized (venous) 1.12 mmol/L (1.16-1.32); Chloride (VBG) 100 mmol/L (98-106); Hemoglobin (Hb) 17.7 g/dL (13.2-17.3); Potassium (VBG) 3.96 mmol/L (3.70-5.30); Sodium 141.7 mmol/L (133-146); pH (venous) 7.45 (7.32-7.43)
[2022-11-29 22:45] LABS: Lactic Acid 0.7 mmol/L (0.5-2.2)
== END 2022-11-29 23:12 | disposition home or self-care (01) ==
LOC: ERS 18:05
DX: R10.9 Unspecified abdominal pain (principal); R11.0 Nausea; D72.829 Elevated white blood cell count, unspecified; F17.210 Nicotine dependence, cigarettes, uncomplicated
CPT/HCPCS: 36415; 74177; 80053; 82805; 83605; 83690; 84484; 85025; 96361; 96374; 96375; 96376; J2270; J2272; J2405; Q9967

== ENCOUNTER 2023-02-21 11:43 | Emergency (ER) | payer OTHER | END 2023-02-21 12:51 | disposition home or self-care (01) | LOC: ERS 11:43 | DX: S13.4XXA Sprain of ligaments of cervical spine, initial encounter (principal); F17.210 Nicotine dependence, cigarettes, uncomplicated; V43.92XA Unspecified car occupant injured in collision with other type car in traffic accident, initial encounter ==